=== PATIENT | male | born 1955 | race Caucasian/White ===

== ENCOUNTER 2020-09-27 17:50 | Inpatient (IN) | payer MEDICARE ==
[~2020-09-27] VITALS: Ht 165.1 cm; Wt 94.0 kg
[2020-09-27 18:29] VITALS: BP 108/41
--- NOTE | 2020-09-27 19:00 | NUR ---
ASSUMED CARE OF PT AT THIS TIME. REPORT RECEIVED FROM EDUAR DIEHL.
[2020-09-27 19:14] LABS: BASOPHILS 0.2 % (0-2); EOSINOPHILS 1.8 % (0-7); HEMATOCRIT 21.7 % (42.0-54.0); IMMATURE GRANULOCYTES 0.7 % (0-5); LYMPHOCYTES 19.7 % (15-50); MCHC 24.4 g/dL (31.0-37.0); MCV 73.6 fL (80.0-100.0); MEAN PLATELET VOLUME 9.2 fL (7.4-10.4); MONOCYTES 10.6 % (2-11); NEUTROPHIL ABS# 3.75 10x3/uL (1.78-5.38); PLATELET COUNT 353 10x3/uL (130-400); RBC 2.95 10x6/uL (4.20-6.10); RDW 18.7 % (11.5-14.5); WBC 5.6 10x3/uL (4.8-10.8)
[2020-09-27 19:17] LABS: APTT 28.9 SECONDS (22.8-39.4); INR 1.26 (0.85-1.17); PROTIME 14.6 SECONDS (11.6-15.0)
[2020-09-27 19:26] LABS: HEMOGLOBIN 5.3 g/dL (13.5-17.5)
[2020-09-27 19:30] VITALS: BP 112/49
--- NOTE | 2020-09-27 19:35 | NUR ---
BLOOD CONSENTS OBTAINED AT THIS TIME. PT GIVEN BED BATH, LINEN CHANGED AT THIS TIME. NOTED PRESUMED BED BUGS SCATTERED ACROSS LINEN, ON BED SIDE TABLE WHERE JACKET WAS LAYING, CRAWLING ACROSS PT SKIN. PT BELONGINGS DOUBLE BAGED.
[2020-09-27 19:39] LABS: CALC OSMOLALITY 293 mosm/kg (275-300); CALCIUM 9.2 mg/dL (8.5-10.1); CARBON DIOXIDE 19.5 mmol/L (21.0-32.0); CHLORIDE - SERUM 108 mmol/L (98-107); CREATININE - SERUM 3.2 mg/dL (0.6-1.3); GLUCOSE 120 mg/dL (74-106); POTASSIUM - SERUM 4.5 mmol/L (3.5-5.1); SODIUM 142 mmol/L (136-145); UREA NITROGEN 40 mg/dL (7-18); eGFR NON AFRICAN AMERICAN 21 mL/min (90-120)
[2020-09-27 19:56] LABS: ALBUMIN 3.3 g/dL (3.4-5.0); ALKALINE PHOSPHATASE 91 U/L (30-120); ALT (SGPT) 11 U/L (10-68); BILIRUBIN - TOTAL 0.42 mg/dL (0.2-1.3); CKMB 0.5 U/L (0.0-3.6); CREATINE KINASE 49 UL (21-232); MAGNESIUM - SERUM 2.8 mg/dL (1.8-2.4); PROTEIN - SERUM 7.4 g/dL (6.4-8.2); THYROID STIMULATING HORMONE 2.71 uIU/mL (0.36-3.74); TROPONIN-I < 0.017 ng/mL (0.000-0.060)
[2020-09-27 20:30] VITALS: BP 106/53
[2020-09-27 20:53] LABS: % SATURATION 3 % (15-55); IRON 18 ug/dl (35-150); TOTAL IRON BIND CAPACITY 452 ug/dl (260-445); UNSAT IRON BIND CAPACITY 434 ug/dl (150-375)
--- NOTE | 2020-09-27 20:59 | NUR ---
PROVIDED ICE CHIPS PER EDP VERBAL ORDER. PT TOLERATED WELL. INITIATED BLOOD TRANSFUSION AT THIS TIME.
[2020-09-27] MEDS ORDERED: LOSARTAN-HCTZ1 EAC1 PO ×2 (22:02→22:03)
[2020-09-27] MEDS ORDERED: PRAVACHOL40 MG PO (22:03)
[2020-09-27] MEDS ORDERED: TOPROL XL25 MG PO (22:03)
[2020-09-27] MEDS ORDERED: GLUCOPHAGE XR750 MG PO (22:04)
[2020-09-27] MEDS ORDERED: BUPROPION HCL150 M1 PO (22:04)
[2020-09-27 23:00] VITALS: BP 127/53
[2020-09-28] VITALS (21 sets, daily range): BP systolic 91–152; BP diastolic 39–108; Ht 165.1 cm; Wt 94.0 kg
[2020-09-28 09:26] LABS: BASOPHILS 0 % (0-2); EOSINOPHILS 2.6 % (0-7); IMMATURE GRANULOCYTES 0.6 % (0-5); LYMPHOCYTE ABS# 1.03 10x3/uL (1.32-3.57); LYMPHOCYTES 29.8 % (15-50); MCH 22.3 pg (26.0-34.0); MCHC 28.5 g/dL (31.0-37.0); MEAN PLATELET VOLUME 9.4 fL (7.4-10.4); MONOCYTES 12.7 % (2-11); NEUTROPHIL ABS# 1.88 10x3/uL (1.78-5.38); NEUTROPHILS 54.3 % (40-80); RDW 19.7 % (11.5-14.5)
[2020-09-28 09:36] LABS: HEMATOCRIT 30.2 % (42.0-54.0); HEMOGLOBIN 8.6 g/dL (13.5-17.5); MCV 78.4 fL (80.0-100.0); PLATELET COUNT 237 10x3/uL (130-400); RBC 3.85 10x6/uL (4.20-6.10); WBC 3.5 10x3/uL (4.8-10.8)
[2020-09-28 09:45] LABS: APTT 27.2 SECONDS (22.8-39.4); INR 1.22 (0.85-1.17); PROTIME 14.2 SECONDS (11.6-15.0)
[2020-09-28 09:51] LABS: ALBUMIN 2.9 g/dL (3.4-5.0); ANION GAP 11.5 mmol/L (8-16); BILIRUBIN - TOTAL 0.65 mg/dL (0.2-1.3); CALCIUM 8.4 mg/dL (8.5-10.1); CARBON DIOXIDE 23.2 mmol/L (21.0-32.0); MAGNESIUM - SERUM 2.4 mg/dL (1.8-2.4); PROTEIN - SERUM 6.6 g/dL (6.4-8.2)
[2020-09-28 09:52] LABS: CREATININE - SERUM 2.3 mg/dL (0.6-1.3); POTASSIUM - SERUM 3.7 mmol/L (3.5-5.1)
[2020-09-28 13:13] LABS: UDS - AMPHET NEGATIVE QUAL (NEGATIVE); UDS - BARB NEGATIVE QUAL (NEGATIVE); UDS - BENZO NEGATIVE QUAL (NEGATIVE); UDS - COCAINE NEGATIVE QUAL (NEGATIVE); UDS - OPIATE NEGATIVE QUAL (NEGATIVE); UDS - PCP NEGATIVE QUAL (NEGATIVE); UDS - THC NEGATIVE QUAL (NEGATIVE)
[2020-09-28 13:21] LABS: LDL-HDL RATIO 1.4 ratio (1.5-3.5); MAGNESIUM - SERUM 2.4 mg/dL (1.8-2.4); PHOSPHOROUS 3.7 mg/dL (2.5-4.9)
[2020-09-28 13:35] LABS: COMPLEMENT C4 34.1 mg/dL (17.4-52.2)
[2020-09-28 13:58] LABS: BILIRUBIN NEGATIVE (NEGATIVE); KETONE NEGATIVE (NEGATIVE); NITRITE NEGATIVE (NEGATIVE); UROBILINOGEN NORMAL mg/dL (< 2)
--- NOTE | 2020-09-28 16:46 | MORECARE ---
CASE MANAGEMENT DISCHARGE SUMMARY PATIENT: SHELIA HERNANDEZ UNIT: [id number] ADM DATE: 09/27/20 AGE: 65 : 53 SEX: M ROOM/BED: D.2309 AUTHOR: KARRI BRANCH PHYSICIAN: REFERRING PHYSICIAN: MOON AYALA MD DATE OF SERVICE: 09/28/20 Discharge Plan Patient Name: SHELIA HERNANDEZ Facility: [facility]:[place] : 1955 Planned Disposition: Home Anticipated Discharge Date: Discharge Date: Expected LOS: Initial Reviewer: [id number] Initial Review Date: 09/27/2020 Generated: 09/28/20 5:45 pm Comments DCP- Discharge Planning Updated by [email or web address]: Ester Byrne on 09/28/20 3:[address] Patient plans to DC home and feels this is a safe discharge plan. Patient uses Dr. Luann Sosa as his PCP and [facility] pharmacy #[id number]. Patient is unsure of Arlin Hernandez phone number or contact information. DCPIA - Discharge Planning Initial Assessment Updated by [email or web address]: Ester Byrne on 09/28/20 4:42 pm * Is the patient Alert and Oriented? Yes * How many steps to enter\exit or inside your home? none * PCP Dr. Luann Sosa - [facility] * Pharmacy [facility] pharmacy #[id number] * Preadmission Environment Home Alone * ADLs Independent * Other Equipment none * List name and contact numbers for known caregivers / representatives who currently or will assist patient after discharge: Arlin Chacon, number unknown * Verbal permission to speak to the caregivers and representatives has been obtained from the patient. Yes * Can the patient safely return to the preadmission environment? Yes * Has this patient been hospitalized within the prior 30 days at any hospital? No Patient Name: SHELIA HERNANDEZ Page [id number] at 1646 All edits/amendments must be made on the electronic document DICTATION DATE: 09/28/201644 URBAN DESIGNER: LIZZIE 09/28/20 164 RPT#: [id number] DC DATE: STATUS: ADM IN [facility] [address] [place] [address] END OF REPORT
--- NOTE | 2020-09-28 18:55 | NUR ---
Recieved report. Pt lying in bed watching television. PIV Right hand patent. No distress noted. Will continue to monitor.
[2020-09-29] VITALS (23 sets, daily range): BP systolic 114–146; BP diastolic 48–105
[2020-09-29 03:08] LABS: BASOPHILS 0 % (0-2); EOSINOPHILS 2.7 % (0-7); HEMOGLOBIN 8.2 g/dL (13.5-17.5); IMMATURE GRANULOCYTES 0.8 % (0-5); LYMPHOCYTE ABS# 1.04 10x3/uL (1.32-3.57); LYMPHOCYTES 28.1 % (15-50); MCH 22.3 pg (26.0-34.0); MCHC 28.3 g/dL (31.0-37.0); MCV 78.8 fL (80.0-100.0); MEAN PLATELET VOLUME 9.8 fL (7.4-10.4); MONOCYTES 15.9 % (2-11); NEUTROPHIL ABS# 1.94 10x3/uL (1.78-5.38); NEUTROPHILS 52.5 % (40-80); PLATELET COUNT 234 10x3/uL (130-400); RBC 3.68 10x6/uL (4.20-6.10); RDW 19.8 % (11.5-14.5); WBC 3.7 10x3/uL (4.8-10.8)
[2020-09-29 03:24] LABS: ALBUMIN 2.6 g/dL (3.4-5.0); BILIRUBIN - TOTAL 0.45 mg/dL (0.2-1.3); CALCIUM 7.8 mg/dL (8.5-10.1); CARBON DIOXIDE 22.3 mmol/L (21.0-32.0); MAGNESIUM - SERUM 2.6 mg/dL (1.8-2.4); PROTEIN - SERUM 5.7 g/dL (6.4-8.2)
[2020-09-29 03:29] LABS: CREATININE - SERUM 1.6 mg/dL (0.6-1.3); POTASSIUM - SERUM 4.3 mmol/L (3.5-5.1)
[2020-09-29 12:09] LABS: ANA REFLEX - DBL STRANDED DNA 2 IU/mL (0-9)
[2020-09-29 15:10] LABS: ANA REFLEX - ANTICHROMATIN ABS <0.2 AI (0.0-0.9); ANA REFLEX - CENTROMERE B ABS <0.2 AI (0.0-0.9); ANA REFLEX - DIRECT Positive (Negative); ANA REFLEX - JO-1 AB <0.2 AI (0.0-0.9); ANA REFLEX - RNP ANTIBODIES >8.0 AI (0.0-0.9); ANA REFLEX - SCL-70 <0.2 AI (0.0-0.9); ANA REFLEX - SJOGRENS AB SSA <0.2 AI (0.0-0.9); ANA REFLEX - SJOGRENS AB SSB <0.2 AI (0.0-0.9); ANA REFLEX - SMITH AB <0.2 AI (0.0-0.9)
[2020-09-30] VITALS (13 sets, daily range): BP systolic 117–151; BP diastolic 52–123
[2020-09-30 04:25] LABS: BASOPHILS 0.2 % (0-2); EOSINOPHILS 3.1 % (0-7); HEMATOCRIT 32.6 % (42.0-54.0); IMMATURE GRANULOCYTES 0.7 % (0-5); LYMPHOCYTE ABS# 1.02 10x3/uL (1.32-3.57); LYMPHOCYTES 22.3 % (15-50); MCH 22.1 pg (26.0-34.0); MCHC 27.6 g/dL (31.0-37.0); MCV 79.9 fL (80.0-100.0); MEAN PLATELET VOLUME 9.7 fL (7.4-10.4); MONOCYTES 14.4 % (2-11); NEUTROPHIL ABS# 2.71 10x3/uL (1.78-5.38); NEUTROPHILS 59.3 % (40-80); PLATELET COUNT 253 10x3/uL (130-400); RBC 4.08 10x6/uL (4.20-6.10); RDW 20.4 % (11.5-14.5); WBC 4.6 10x3/uL (4.8-10.8)
[2020-09-30 04:52] LABS: ALBUMIN 2.6 g/dL (3.4-5.0); BILIRUBIN - TOTAL 0.28 mg/dL (0.2-1.3); CALCIUM 7.8 mg/dL (8.5-10.1); CARBON DIOXIDE 23.9 mmol/L (21.0-32.0); CREATININE - SERUM 1.3 mg/dL (0.6-1.3); MAGNESIUM - SERUM 2.3 mg/dL (1.8-2.4); PROTEIN - SERUM 6.4 g/dL (6.4-8.2)
[2020-09-30 04:54] LABS: ANION GAP 12.6 mmol/L (8-16); POTASSIUM - SERUM 3.5 mmol/L (3.5-5.1)
--- NOTE | 2020-09-30 10:43 | NUR ---
BATH AND LINEN CHANGE. PT UP TO CHAIR WITH ASST.
--- NOTE | 2020-09-30 18:41 | NUR ---
RECEIVED PT TO THE FLOOR. AAOX4, SITUATED COMFORTABLY IN BED. DENIES ANY NEEDS AT THIS TIME. BED IN LOWEST POSITION, BED RAILS X2, CALL LIGHT WITHIN [facility]. WILL CONTINUE POC.
--- NOTE | 2020-09-30 19:00 | NUR ---
BEDSIDE REPORT RECEIVED AND CARE OF PT ASSUMED. PT JUST ARRIVED FROM ICU. ORIENTED TO ROOM AND CALL LIGHT.
--- NOTE | 2020-09-30 21:18 | NUR ---
HS MEDICATIONS GIVEN. RE-STARTED IV FLUIDS PER ORDER.
[2020-10-01 01:17] VITALS: BP 127/67
[2020-10-01 06:36] VITALS: BP 151/67
--- NOTE | 2020-10-01 06:37 | NUR ---
FSBS 102 THIS CHECK REQUIRING NO COVERAGE. PT C/O "STARVING"...GAVE HIM A SANDWICH TRAY AND MILK, SINCE IT IS A WHILE BEFORE BREAKFAST. WILL CONTINUE TO MONITOR FOR NEEDS.
--- NOTE | 2020-10-01 07:15 | NUR ---
REC'D IN BED WITH EYES CLOSED EASILY AROUSED WHEN NAME IS CALLED. RESP EVEN AND UNLABORED WITH NO DISTRESS NOTED. CAN EXPRESS NEEDS AND WANTS. NO C/O NOTED OR VOICED. ASSESSMENT COMPLETED. C/L IN REACH AT BEDSIDE.
[2020-10-01 07:47] LABS: BASOPHILS 0 % (0-2); EOSINOPHILS 2.8 % (0-7); HEMATOCRIT 34.3 % (42.0-54.0); HEMOGLOBIN 9.2 g/dL (13.5-17.5); IMMATURE GRANULOCYTES 0.7 % (0-5); LYMPHOCYTE ABS# 0.88 10x3/uL (1.32-3.57); LYMPHOCYTES 15.4 % (15-50); MCHC 26.8 g/dL (31.0-37.0); MEAN PLATELET VOLUME 9.8 fL (7.4-10.4); MONOCYTES 14.5 % (2-11); NEUTROPHIL ABS# 3.82 10x3/uL (1.78-5.38); NEUTROPHILS 66.6 % (40-80); PLATELET COUNT 237 10x3/uL (130-400); RBC 4.18 10x6/uL (4.20-6.10); RDW 21.3 % (11.5-14.5); WBC 5.7 10x3/uL (4.8-10.8)
[2020-10-01 07:55] LABS: MCV 82.1 fL (80.0-100.0)
[2020-10-01 08:16] LABS: ALBUMIN 2.8 g/dL (3.4-5.0); ANION GAP 14.6 mmol/L (8-16); BILIRUBIN - TOTAL 0.53 mg/dL (0.2-1.3); CALCIUM 8.4 mg/dL (8.5-10.1); CREATININE - SERUM 1.2 mg/dL (0.6-1.3); POTASSIUM - SERUM 3.6 mmol/L (3.5-5.1); PROTEIN - SERUM 6.8 g/dL (6.4-8.2)
[2020-10-01 08:49] VITALS: BP 143/71
[2020-10-01 12:05] VITALS: BP 146/70
--- NOTE | 2020-10-01 12:50 | NUR ---
RETURN CALL TO BROTHER LYNDSEY AT THIS TIME AND GAVE UPDATE ON PT PROGRESSION.
--- NOTE | 2020-10-01 13:36 | NUR ---
Nutrition Reassessment/Follow-up: From ICU. Eating well. Reports eating 2 breakfast trays this AM. Ongoing diarrhea. GI following. Diet: Renal ADA PO intake: 80-100% Wt: 198# (09/30) Labs noted: Glu 120, Ca 8.4, Alb 2.8 Meds noted: Protonix, Florajen, Humulin, NS @ 50, banana bag @ 125, electrolyte protocol Est needs: 1374-2099 kcal/day (25-30 kcal/kg Adj BW of 68.8 kg) 70-85 g protein/day (1-1.2 g/kg Adj BW of 68.8 kg) 8490-5084 mL H2O/day (1 mL/kcal) -RD will follow up by 10/08 if pt still admitted.
[2020-10-01 17:08] LABS: SPE - A/G RATIO 0.9 (0.7-1.7); SPE - ALBUMIN 2.9 g/dL (2.9-4.4); SPE - ALPHA-1 GLOBULIN 0.2 g/dL (0.0-0.4); SPE - ALPHA-2 GLOBULIN 0.7 g/dL (0.4-1.0); SPE - BETA GLOBULIN 1.1 g/dL (0.7-1.3); SPE - GAMMA GLOBULIN 1.2 g/dL (0.4-1.8); SPE - M-SPIKE Not Observed g/dL (Not Observed); SPE - TOTAL PROTEIN 6.1 g/dL (6.0-8.5)
[2020-10-01 17:08] LABS: UPE RAND - ALPHA 1 GLOBULIN 3.4 % (()); UPE RAND - ALPHA 2 GLOBULIN 13.3 % (()); UPE RAND - BETA GLOBULIN 23.3 % (())
--- NOTE | 2020-10-01 17:10 | NUR ---
OT NOTE: PT COMPLETED BED MOB WITH CGA. PT COMPLETED BUE AROM EXS AT EOB WITH SPV. PT COMPLETED SELF FEEDING WITH SETUP AT EOB. PT COMPLETED FACE HYGIENE WITH SETUP. [phone] THANK YOU,MAGDALENE LOYD
[2020-10-01 18:05] VITALS: BP 164/67
--- NOTE | 2020-10-01 19:00 | NUR ---
REPORT GIVEN BY EDUAR SHIPLEY
--- NOTE | 2020-10-01 20:30 | NUR ---
PT IS LAYING IN BED WATCHING TV. HE HAS NO C/O. HE IS ON ISOLATION FOR C DIFF. HE HAS DM, HTN, AND CA PNEUMONIA. HE IS NOT ON O2. HE IS A BIT WEAK BUT HE GETS UP AND GOES TO THE BR ALONE. I TOOK IN THINGS TO GET A STOOL SPECIMEN THAT WAS ORDERED. PT IS AWARE THAT HE NEEDS TO PROVIDE A SAMPLE. HE HAS AN IV IN THE RIGHT FOREARM. THERE IS NO REDNESS OR SWELLING AT THE SITE. HE HAS NO C/O OR NEEDS AT THIS TIME.
[2020-10-01 20:48] VITALS: BP 152/76
--- NOTE | 2020-10-01 21:45 | NUR ---
BS IS 115. NO C/O PT WATCHING TV.
--- NOTE | 2020-10-01 23:45 | NUR ---
STOOL SAMPLE COLLECTED AND TAKEN TO THE LAB. THE STOOL WAS N0T LIQUID BUT SEMI FORMED.
--- NOTE | 2020-10-02 02:00 | NUR ---
IN PT ROOM TO [facility] ANTIBIOTICS. PT IS ASLEEP AND DID NOT WAKE UP WHILE I WAS IN THE ROOM.
[2020-10-02 04:00] VITALS: BP 139/59
--- NOTE | 2020-10-02 04:25 | NUR ---
IN PT ROOM TO [facility] IV FLU[facility]. HE BARELY WOKE UP WHEN I WAS IN THE ROOM. HE HAS NO C/O OR NEEDS AT THIS TIME.
[2020-10-02 05:57] LABS: BASOPHILS 0 % (0-2); HEMATOCRIT 31.6 % (42.0-54.0); HEMOGLOBIN 8.6 g/dL (13.5-17.5); IMMATURE GRANULOCYTES 0.8 % (0-5); LYMPHOCYTE ABS# 0.86 10x3/uL (1.32-3.57); LYMPHOCYTES 17.6 % (15-50); MCH 22.1 pg (26.0-34.0); MCHC 27.2 g/dL (31.0-37.0); MEAN PLATELET VOLUME 9.9 fL (7.4-10.4); MONOCYTES 12.1 % (2-11); NEUTROPHIL ABS# 3.29 10x3/uL (1.78-5.38); NEUTROPHILS 67.5 % (40-80); PLATELET COUNT 221 10x3/uL (130-400); RDW 21.6 % (11.5-14.5); WBC 4.9 10x3/uL (4.8-10.8)
--- NOTE | 2020-10-02 06:30 | NUR ---
PT SLEPT MOST OF THE SHIFT. NO NEW C/O OR NEEDS
[2020-10-02 07:02] LABS: ALBUMIN 2.6 g/dL (3.4-5.0); ANION GAP 14.4 mmol/L (8-16); BILIRUBIN - TOTAL 0.38 mg/dL (0.2-1.3); CARBON DIOXIDE 21.4 mmol/L (21.0-32.0); CREATININE - SERUM 1.1 mg/dL (0.6-1.3); MAGNESIUM - SERUM 2.1 mg/dL (1.8-2.4); POTASSIUM - SERUM 3.8 mmol/L (3.5-5.1)
--- NOTE | 2020-10-02 07:30 | NUR ---
REC'D IN BED AWAKE WATCHING TV. RESP EVEN AND UNLABORED WITH NO DISTRESS NOTED. CAN EXPRESS SOME NEEDS AND WANTS. NO C/O NOTED OR VOICED. ASSESSMENT COMPLETED. C/L IN REACH AT BEDSIDE.
[2020-10-02 08:43] VITALS: BP 145/70
--- NOTE | 2020-10-02 12:44 | NUR ---
I AGREE WITH THE ASSESSMENT COMPLETED BY THE LOG CLERK
[2020-10-02 13:13] VITALS: BP 137/73
--- NOTE | 2020-10-02 16:12 | NUR ---
OT NOTE: PT EXHIBITED DECREASED SAFETY AWARENESS. PT EXHIBITED WHEEZING DURING ACTIVITIES. NURSING NOTIFIED. PT O2 SATS STABLE. PT REQUIRED MOD A FOR SUPINE TO SIT AT EOB. PT COMPLETED STANDING WITH MIN A. PT REQUIRED MIN A FOR UB BATHING TASKS AT EOB. PT REQUIRED MAX A FOR LB BATHING TASKS SECONDARY TO BM. PT COMPLETED HAIR SHAMPOO WITH MOD A. [phone] THANK YOU,MAGDALENE LOYD
--- NOTE | 2020-10-02 16:51 | NUR ---
OT NOTE: PT GETTING UP OUT OF BED..RAN INTO PTS ROOM TO ASSIST. PT GETTING TANGLED UP IN IV LINE.. MIN ASSIST WITH AMB TO TOILET. MOD ASSIST WITH THOROUGH TOILET HYGIENE. MIN ASSIST AND MOD VC FOR SAFETY WITH RETURN TO BED. SET UP WITH SIMPLE GROOMING TASKS WHILE SITTING UP ON EOB. MARY CASTILLO, OTR/L [phone]
[2020-10-02 17:54] VITALS: BP 163/74
[2020-10-02 20:00] VITALS: BP 153/63
[2020-10-03] VITALS: BP 141/53
--- NOTE | 2020-10-03 03:38 | NUR ---
I have reviewed this patient and I concur with the Shift Assessment completed by the Licensed Practical Nurse today this shift.
[2020-10-03 04:00] VITALS: BP 114/69
[2020-10-03 05:31] LABS: ALBUMIN 2.7 g/dL (3.4-5.0); ALKALINE PHOSPHATASE 71 U/L (30-120); ALT (SGPT) 13 U/L (10-68); BILIRUBIN - TOTAL 0.38 mg/dL (0.2-1.3); CALC OSMOLALITY 280 mosm/kg (275-300); CALCIUM 8.1 mg/dL (8.5-10.1); CARBON DIOXIDE 21.9 mmol/L (21.0-32.0); CHLORIDE - SERUM 110 mmol/L (98-107); GLUCOSE 140 mg/dL (74-106); MAGNESIUM - SERUM 2.2 mg/dL (1.8-2.4); POTASSIUM - SERUM 3.8 mmol/L (3.5-5.1); PROTEIN - SERUM 6.6 g/dL (6.4-8.2); SODIUM 141 mmol/L (136-145); UREA NITROGEN 8 mg/dL (7-18); eGFR NON AFRICAN AMERICAN 79 mL/min (90-120)
[2020-10-03 08:40] LABS: HEMATOCRIT 28.2 % (42.0-54.0); LYMPHOCYTE ABS# 0.88 10x3/uL (1.32-3.57); MCH 22.7 pg (26.0-34.0); MCHC 28.4 g/dL (31.0-37.0); MCV 79.9 fL (80.0-100.0); MEAN PLATELET VOLUME 9.7 fL (7.4-10.4); NEUTROPHIL ABS# 2.88 10x3/uL (1.78-5.38); PLATELET COUNT 181 10x3/uL (130-400); RBC 3.53 10x6/uL (4.20-6.10); RDW 21.8 % (11.5-14.5); WBC 4.4 10x3/uL (4.8-10.8)
[2020-10-03 09:26] VITALS: BP 156/69
[2020-10-03 12:45] LABS: EOSINOPHILS 3 % (0-7); LYMPHOCYTES 24 % (15-50); MONOCYTES 15 % (2-11); NEUTROPHILS 58 % (40-80); PLATELET ESTIMATE NORMAL
--- NOTE | 2020-10-03 13:05 | MORECARE ---
CASE MANAGEMENT DISCHARGE SUMMARY PATIENT: SHELIA HERNANDEZ UNIT: [id number] ADM DATE: 09/27/20 AGE: 65 : 53 SEX: M ROOM/BED: D.2207 AUTHOR: SARINADOC PHYSICIAN: REFERRING PHYSICIAN: MOON AYALA MD DATE OF SERVICE: 10/03/20 Discharge Plan Patient Name: SHELIA HERNANDEZ Facility: [facility]:[place] : 1955 Planned Disposition: Home Anticipated Discharge Date: Discharge Date: Expected LOS: Initial Reviewer: [email or web address] Initial Review Date: 09/27/2020 Generated: 10/03/20 2:04 pm Comments DCP- Discharge Planning Updated by [id number]: Lety Cash on 10/03/20 12:[address] [facility] TAKES HIS INSURANCE SO I HAVE SENT THE REFERRAL TO THEM THEY WILL CALL ME BACK IF THEY HAVE ANY ISSUES IMMSERVED AND GARCIA ALSO OBTAINED DCP- Discharge Planning Updated by [email or web address]: Lety Cash on 10/03/20 11:[address] MET WITH PATIENT ABOUT DC PLANS AND REHAB, HE DOES NOT WANT TO GO TO REHAB BUT HE IS AGREEABLE TO HOME HEALTH. GARCIA SIGNED FOR WHOEVER TAKES HIS INSURANCE HE APPEARED SOB IN THE ROOM TALKING WITH ME I HAVE ORDERED A WALK TEST TO SEE IF HE MIGHT NEED HOME O2 DCP- Discharge Planning Updated by [id number]: Ester Byrne on 09/28/20 3:[address] Patient plans to DC home and feels this is a safe discharge plan. Patient uses Dr. Luann Sosa as his PCP and [facility] pharmacy #[id number]. Patient is unsure of Arlin Hernandez phone number or contact information. DCPIA - Discharge Planning Initial Assessment Updated by [email or web address]: Ester Byrne on 09/28/20 4:42 pm * Is the patient Alert and Oriented? Yes * How many steps to enter\exit or inside your home? none * PCP Dr. Luann Sosa - [facility] * Pharmacy [facility] pharmacy #[id number] * Preadmission Environment Home Alone * ADLs Independent * Other Equipment none * List name and contact numbers for known caregivers / representatives who currently or will assist patient after discharge: Arlin Chacon, number unknown * Verbal permission to speak to the caregivers and representatives has been obtained from the patient. Yes * Can the patient safely return to the preadmission environment? Yes * Has this patient been hospitalized within the prior 30 days at any hospital? No External Providers External Provider: [facility] Next Contact Date: Service Request Date: Service Type: Resolution: Reviewer: Comments: Coverage Notice Reviewer: [email or web address] Alexi Cash Notice Issued Date-Time: 10/03/2020 12:15 Notice Type: IM Discharge Notice Notice Delivered To: Patient Relationship to Patient: Layup Worker Name: Delivery Method: HAND - Hand Delivered Zunilda Days: Prior Verbal Notification: Recipient Understood Notice: Yes Recipient Signature: Yes Med Rec Note Co-signed by Attending: Coverage Notice Comment: IMM SERVED AND EXPLAINED Reviewer: [email or web address] Alexi Cash Notice Issued Date-Time: 10/03/2020 12:15 Notice Type: Patient Choice Letter Notice Delivered To: Patient Relationship to Patient: Layup Worker Name: Delivery Method: HAND - Hand Delivered Zunilda Days: Prior Verbal Notification: Recipient Understood Notice: Yes Recipient Signature: Yes Med Rec Note Co-signed by Attending: Coverage Notice Comment: GARCIA FOR HOME HEALTH HE DIDN'T CARE Last DP export: 09/28/20 3:46 p Patient Name: SHELIA HERNANDEZ Page [phone] at 1305 All edits/amendments must be made on the electronic document DICTATION DATE: 10/03/20 1305 HOME LIGHTING ADVISER: LIZZIE 10/03/20 1305 RPT#: [id number] DC DATE: STATUS: ADM IN [facility] [address] [place] [address] END OF REPORT
[2020-10-03 13:58] VITALS: BP 138/64
--- NOTE | 2020-10-03 16:10 | NUR ---
OT NOTE: PT EXHIBITED POOR SAFETY AWARENESS. PT COMPLETED SUPINE TO SIT WITH CGA. PT COMPLETED SIT TO STAND WITH CGA. PT COMPLETED BED TO TOILET ADL MOB WITH CGA. PT COMPLETED TOILET HYGIENE WITH MAX A FOR EFFECTIVE CLEANING. PT REQUIRED TACTILE CUES FOR INCREASED SAFETY SECONDARY TO IMPULSIVE TRAITS. [phone] THANK YOU,MAGDALENE LOYD
--- NOTE | 2020-10-03 17:09 | NUR ---
OT NOTE: PT PERFORMING BED MOB INCLUDING SUPINE TO SIT WITHOUT ASSIST; REQUIRES ASSSIST FOR AMB IN ROOM SECONDARY TO SAFETY. PT WAS NOTED AMB THROUGHOUT HALLWAY WITH PHYS THERAPY WITH USE OF WALKER AND DOING WELL. PT REQUIRES SBA FOR AMB TO AND FROM TOILET, HOWEVER, REQUIRES INCREASED ASSIST WITH HYGIENE. PT PERFORMING FEEDING WHILE SITTING UP ON EOB WITHOUT ASSIST. MARY CASTILLO, OTR/L [id number]
[2020-10-03 18:05] VITALS: BP 127/78
[2020-10-03 20:00] VITALS: BP 163/73
[2020-10-04] VITALS: BP 141/81
[2020-10-04 04:00] VITALS: BP 177/86
[2020-10-04 07:39] LABS: BASOPHILS 0.2 % (0-2); EOSINOPHILS 2.5 % (0-7); HEMATOCRIT 28.9 % (42.0-54.0); IMMATURE GRANULOCYTES 0.8 % (0-5); LYMPHOCYTE ABS# 0.46 10x3/uL (1.32-3.57); LYMPHOCYTES 9.7 % (15-50); MCH 22.2 pg (26.0-34.0); MCHC 27.7 g/dL (31.0-37.0); MCV 80.3 fL (80.0-100.0); MONOCYTES 12.2 % (2-11); NEUTROPHIL ABS# 3.55 10x3/uL (1.78-5.38); NEUTROPHILS 74.6 % (40-80); PLATELET COUNT 206 10x3/uL (130-400); RDW 22.2 % (11.5-14.5); WBC 4.8 10x3/uL (4.8-10.8)
[2020-10-04 07:41] LABS: ALBUMIN 2.4 g/dL (3.4-5.0); ANION GAP 13.8 mmol/L (8-16); BILIRUBIN - TOTAL 0.46 mg/dL (0.2-1.3); CALCIUM 8.2 mg/dL (8.5-10.1); CARBON DIOXIDE 19.8 mmol/L (21.0-32.0); CREATININE - SERUM 1.6 mg/dL (0.6-1.3); POTASSIUM - SERUM 3.6 mmol/L (3.5-5.1)
[2020-10-04 08:42] VITALS: BP 159/67
[2020-10-04 11:52] VITALS: BP 152/68
--- NOTE | 2020-10-04 14:24 | MORECARE ---
CASE MANAGEMENT DISCHARGE SUMMARY PATIENT: SHELIA HERNANDEZ UNIT: [id number] ADM DATE: 09/27/20 AGE: 65 : 53 SEX: M ROOM/BED: D.2207 AUTHOR: SARINA,DOC PHYSICIAN: REFERRING PHYSICIAN: MOON AYALA MD DATE OF SERVICE: 10/04/20 Discharge Plan Patient Name: SHELIA HERNANDEZ Facility: [facility]:[place] : 1955 Planned Disposition: Home Anticipated Discharge Date: Discharge Date: Expected LOS: Initial Reviewer: [id number] Initial Review Date: 09/27/2020 Generated: 10/04/20 3:23 pm Comments DCP- Discharge Planning Updated by [email or web address]: Lety Cash on 10/04/20 1:[address] SENT WALK TEST AND CLINICAL TO [facility] FOR O2 NEEDS DCP- Discharge Planning Updated by [id number]: Lety Cash on 10/03/20 12:[address] [facility] TAKES HIS INSURANCE SO I HAVE SENT THE REFERRAL TO THEM THEY WILL CALL ME BACK IF THEY HAVE ANY ISSUES IMMSERVED AND [facility] ALSO OBTAINED DCP- Discharge Planning Updated by [email or web address]: Lety Cash on 10/03/20 11:[address] MET WITH PATIENT ABOUT DC PLANS AND REHAB, HE DOES NOT WANT TO GO TO REHAB BUT HE IS AGREEABLE TO HOME HEALTH. GARCIA SIGNED FOR WHOEVER TAKES HIS INSURANCE HE APPEARED SOB IN THE ROOM TALKING WITH ME I HAVE ORDERED A WALK TEST TO SEE IF HE MIGHT NEED HOME O2 DCP- Discharge Planning Updated by [email or web address]: Ester Byrne on 09/28/20 3:[address] Patient plans to DC home and feels this is a safe discharge plan. Patient uses Dr. Luann Sosa as his PCP and [facility] pharmacy #[id number]. Patient is unsure of Arlin Hernandez phone number or contact information. DCPIA - Discharge Planning Initial Assessment Updated by [email or web address]: Ester Byrne on 09/28/20 4:42 pm * Is the patient Alert and Oriented? Yes * How many steps to enter\exit or inside your home? none * PCP Dr. Luann Sosa - [facility] * Pharmacy [facility] pharmacy #[id number] * Preadmission Environment Home Alone * ADLs Independent * Other Equipment none * List name and contact numbers for known caregivers / representatives who currently or will assist patient after discharge: Arlin Chacon, number unknown * Verbal permission to speak to the caregivers and representatives has been obtained from the patient. Yes * Can the patient safely return to the preadmission environment? Yes * Has this patient been hospitalized within the prior 30 days at any hospital? No External Providers External Provider: OTHER-OTHER Next Contact Date: Service Request Date: Service Type: Resolution: Reviewer: Comments: Coverage Notice Reviewer: [id number] Cash Notice Issued Date-Time: 10/03/2020 12:15 Notice Type: IM Discharge Notice Notice Delivered To: Patient Relationship to Patient: Die Baker Name: Delivery Method: HAND - Hand Delivered Zunilda Days: Prior Verbal Notification: Recipient Understood Notice: Yes Recipient Signature: Yes Med Rec Note Co-signed by Attending: Coverage Notice Comment: IMM SERVED AND EXPLAINED Reviewer: [id number] Cash Notice Issued Date-Time: 10/03/2020 12:15 Notice Type: Patient Choice Letter Notice Delivered To: Patient Relationship to Patient: Die Baker Name: Delivery Method: HAND - Hand Delivered Zunilda Days: Prior Verbal Notification: Recipient Understood Notice: Yes Recipient Signature: Yes Med Rec Note Co-signed by Attending: Coverage Notice Comment: GARCIA FOR HOME HEALTH HE DIDN'T CARE Last DP export: 10/03/20 12:05 pm Patient Name: SHELIA HERNANDEZ Page 22226 at 1424 All edits/amendments must be made on the electronic document DICTATION DATE: 10/04/20 142 MEDIA COORDINATOR: LIZZIE 10/04/20 142 RPT#: [id number] DC DATE: STATUS: ADM IN [facility] [address] [place] [address] END OF REPORT
--- NOTE | 2020-10-04 15:05 | NUR ---
OT NOTE: PT EXHIBITED DECREASED ADL ABILITY WITH TOILET HYGIENE. PT PRESENTED ON TOILET WITH BM ON LE AND TOILET AREA. PT REQUIRED MAX-TOTAL A WITH LB HYGIENE. PT COMPLETED DOFF OF BRIEF WITH MIN A. PT DONNED BRIEF WITH SETUP. PT COMPLETED ADL MOB WITH CGA. PT CUED TO USE CALL LIGHT FOR ASSIST. CL WITHIN REACH. NO BED ALARM PRESENT. DEL CASTILLO NOTIFIED NURSE. AT NURSING REQUEST DEL CASTILLO PUT BED ALARM PAD. [phone] THANK YOU,MAGDALENE LOYD
[2020-10-04 17:12] VITALS: BP 173/83
[2020-10-04 20:00] VITALS: BP 152/65
[2020-10-05] VITALS: BP 167/101
[2020-10-05 04:00] VITALS: BP 165/71
--- NOTE | 2020-10-05 04:44 | NUR ---
I have reviewed this patient and I concur with the Shift Assessment completed by the Licensed Practical Nurse today this shift.
[2020-10-05 06:48] LABS: ALBUMIN 2.7 g/dL (3.4-5.0); ANION GAP 16.5 mmol/L (8-16); BILIRUBIN - TOTAL 0.35 mg/dL (0.2-1.3); CALCIUM 8.3 mg/dL (8.5-10.1); CARBON DIOXIDE 19.2 mmol/L (21.0-32.0); CREATININE - SERUM 1.6 mg/dL (0.6-1.3); MAGNESIUM - SERUM 2.2 mg/dL (1.8-2.4); PHOSPHOROUS 3.4 mg/dL (2.5-4.9); POTASSIUM - SERUM 3.7 mmol/L (3.5-5.1); PROTEIN - SERUM 6.2 g/dL (6.4-8.2)
[2020-10-05 07:20] LABS: BASOPHILS 0.2 % (0-2); HEMATOCRIT 31.1 % (42.0-54.0); HEMOGLOBIN 8.7 g/dL (13.5-17.5); IMMATURE GRANULOCYTES 0.6 % (0-5); LYMPHOCYTE ABS# 0.89 10x3/uL (1.32-3.57); LYMPHOCYTES 18.2 % (15-50); MCH 22.3 pg (26.0-34.0); MCV 79.7 fL (80.0-100.0); MEAN PLATELET VOLUME 10.5 fL (7.4-10.4); MONOCYTES 9.4 % (2-11); NEUTROPHIL ABS# 3.39 10x3/uL (1.78-5.38); NEUTROPHILS 69.6 % (40-80); PLATELET COUNT 195 10x3/uL (130-400); RDW 22.8 % (11.5-14.5); WBC 4.9 10x3/uL (4.8-10.8)
[2020-10-05 08:26] VITALS: BP 115/69
--- NOTE | 2020-10-05 09:54 | NUR ---
PT SITTING UP ON SIDE OF BED. RESP EVEN AND UNLABORED. DENIES PAIN AT THIS TIME. IV TO RIGHT FOREARM WITH NS @ 50ML/HR INFUSING VIA PUMP. SITE WITHOUT REDNESS OR EDEMA. DENIES NEEDS AT THIS TIME. CL WITHIN REACH. ENCOURAGED TO CALL WITH NEEDS. CONTINUE POC
[2020-10-05 11:22] VITALS: BP 144/79
--- NOTE | 2020-10-05 12:08 | NUR ---
OT NOTE: PT COMPLETED SITTING AND STANDING BALANCE WITH CGA. PT EXHIBITED DECREASED SAFETY AWARENESS. [phone] THANK YOU,MAGDALENE LOYD
--- NOTE | 2020-10-05 13:28 | MORECARE ---
CASE MANAGEMENT DISCHARGE SUMMARY PATIENT: SHELIA HERNANDEZ UNIT: [id number] ADM DATE: 09/27/20 AGE: 65 : 53 SEX: M ROOM/BED: D.2207 AUTHOR: SARINA,DOC PHYSICIAN: REFERRING PHYSICIAN: MOON AYALA MD DATE OF SERVICE: 10/05/20 Discharge Plan Patient Name: SHELIA HERNANDEZ Facility: [facility]:[place] : 1955 Planned Disposition: Home Anticipated Discharge Date: Discharge Date: Expected LOS: Initial Reviewer: [email or web address] Initial Review Date: 09/27/2020 Generated: 10/05/20 2:28 pm Comments DCP- Discharge Planning Updated by [email or web address]: Lety Cash on 10/05/20 12:[address] I have ordered O2, walker and nebulizer from [facility], they should deliver to the hospital when patient is ready to discharge home [facility] will accept the patient if his home bed bug situation has been treated. DCP- Discharge Planning Updated by [email or web address]: Lety Cash on 10/04/20 1:[address] SENT WALK TEST AND CLINICAL TO [facility] FOR O2 NEEDS DCP- Discharge Planning Updated by [id number]: Lety Cash on 10/03/20 12:[address] [facility] TAKES HIS INSURANCE SO I HAVE SENT THE REFERRAL TO THEM THEY WILL CALL ME BACK IF THEY HAVE ANY ISSUES IMMSERVED AND [facility] ALSO OBTAINED DCP- Discharge Planning Updated by [id number]: Lety Cash on 10/03/20 11:[address] MET WITH PATIENT ABOUT DC PLANS AND REHAB, HE DOES NOT WANT TO GO TO REHAB BUT HE IS AGREEABLE TO HOME HEALTH. GARCIA SIGNED FOR WHOEVER TAKES HIS INSURANCE HE APPEARED SOB IN THE ROOM TALKING WITH ME I HAVE ORDERED A WALK TEST TO SEE IF HE MIGHT NEED HOME O2 DCP- Discharge Planning Updated by [email or web address]: Ester Byrne on 09/28/20 3:[address] Patient plans to DC home and feels this is a safe discharge plan. Patient uses Dr. Luann Sosa as his PCP and [facility] pharmacy #[id number]. Patient is unsure of Arlin Hernandez phone number or contact information. DCPIA - Discharge Planning Initial Assessment Updated by [email or web address]: Ester Byrne on 09/28/20 4:42 pm * Is the patient Alert and Oriented? Yes * How many steps to enter\exit or inside your home? none * PCP Dr. Luann Truong [facility] * Pharmacy [facility] pharmacy #[id number] * Preadmission Environment Home Alone * ADLs Independent * Other Equipment none * List name and contact numbers for known caregivers / representatives who currently or will assist patient after discharge: Arlin Chacon, number unknown * Verbal permission to speak to the caregivers and representatives has been obtained from the patient. Yes * Can the patient safely return to the preadmission environment? Yes * Has this patient been hospitalized within the prior 30 days at any hospital? No Coverage Notice Reviewer: [id number] Alexi Cash Notice Issued Date-Time: 10/03/2020 12:15 Notice Type: IM Discharge Notice Notice Delivered To: Patient Relationship to Patient: Olive Grader Name: Delivery Method: HAND - Hand Delivered Zunilda Days: Prior Verbal Notification: Recipient Understood Notice: Yes Recipient Signature: Yes Med Rec Note Co-signed by Attending: Coverage Notice Comment: IMM SERVED AND EXPLAINED Reviewer: [id number] Alexi Cash Notice Issued Date-Time: 10/03/2020 12:15 Notice Type: Patient Choice Letter Notice Delivered To: Patient Relationship to Patient: Olive Grader Name: Delivery Method: HAND - Hand Delivered Zunilda Days: Prior Verbal Notification: Recipient Understood Notice: Yes Recipient Signature: Yes Med Rec Note Co-signed by Attending: Coverage Notice Comment: GARCIA FOR HOME HEALTH HE DIDN'T CARE Last DP export: 10/04/20 1:24 pm Patient Name: SHELIA HERNANDEZ Page [phone] at 1328 All edits/amendments must be made on the electronic document DICTATION DATE: 10/05/20 1328 STROKE PROGRAM COORDINATOR: LIZZIE 10/05/20 1328 RPT#: [id number] DC DATE: STATUS: ADM IN [facility] [address] [place] [address] END OF REPORT
[2020-10-05 16:44] VITALS: BP 138/68
[2020-10-05 17:30] LABS: ERYTHROCYTE SEDIMENTATION RATE 21 mm/hr (0-20)
[2020-10-05 20:29] VITALS: BP 129/67
[2020-10-06 01:40] VITALS: BP 159/81
[2020-10-06 05:54] VITALS: BP 172/77
[2020-10-06 06:10] LABS: HEMATOCRIT 28.5 % (42.0-54.0); HEMOGLOBIN 7.8 g/dL (13.5-17.5); LYMPHOCYTE ABS# 0.85 10x3/uL (1.32-3.57); MCHC 27.4 g/dL (31.0-37.0); MCV 80.5 fL (80.0-100.0); NEUTROPHIL ABS# 3.53 10x3/uL (1.78-5.38); RBC 3.54 10x6/uL (4.20-6.10); RDW 23.2 % (11.5-14.5); WBC 5.5 10x3/uL (4.8-10.8)
[2020-10-06 06:11] LABS: PLATELET COUNT 143 10x3/uL (130-400)
[2020-10-06 06:38] LABS: EOSINOPHILS 1 % (0-7); LYMPHOCYTES 30 % (15-50); MONOCYTES 1 % (2-11); NEUTROPHILS 66 % (40-80); PLATELET ESTIMATE NORMAL; TEAR DROP CELLS OCC
[2020-10-06 06:39] LABS: BURR CELLS OCC; SCHISTOCYTES OCC
[2020-10-06 06:47] LABS: ALBUMIN 2.2 g/dL (3.4-5.0); ANION GAP 17.2 mmol/L (8-16); BILIRUBIN - TOTAL 0.31 mg/dL (0.2-1.3); CALCIUM 7.9 mg/dL (8.5-10.1); CREATININE - SERUM 1.3 mg/dL (0.6-1.3); MAGNESIUM - SERUM 2.1 mg/dL (1.8-2.4); PHOSPHOROUS 3.6 mg/dL (2.5-4.9); POTASSIUM - SERUM 3.2 mmol/L (3.5-5.1); PROTEIN - SERUM 5.9 g/dL (6.4-8.2)
[2020-10-06 08:15] VITALS: BP 149/69
[2020-10-06 12:14] VITALS: BP 124/76
--- NOTE | 2020-10-06 12:46 | NUR ---
MIN ASSIT TO SOB AND TO STAND WALKED 250 FT BREATHING VERY HARD HALF WAY THRU THE WALK
--- NOTE | 2020-10-06 12:47 | NUR ---
MAX TO SOB ONCE ON THE SIDE ABLE TO HOLD HERSELF UP ON THE SIDE SAHIL TRANFSER TO CHAIR
--- NOTE | 2020-10-06 13:36 | NUR ---
1ST UNIT PRBC'S STARTED WITH NO S/S OF REACTION NOTED. DENIES ANY PAIN OR DISCOMFORT. ENCOURAGED TO USE CALL LIGHT FOR ASSSIT.
--- NOTE | 2020-10-06 16:25 | MORECARE ---
CASE MANAGEMENT DISCHARGE SUMMARY PATIENT: SHELIA HERNANDEZ UNIT: [id number] ADM DATE: 09/27/20 AGE: 65 : 54 SEX: M ROOM/BED: D.2207 AUTHOR: SARINA,DOC PHYSICIAN: REFERRING PHYSICIAN: MOON AYALA MD DATE OF SERVICE: 10/06/20 Discharge Plan Patient Name: SHELIA HERNANDEZ Facility: [facility]:[place] : 1955 Planned Disposition: Home Anticipated Discharge Date: Discharge Date: Expected LOS: Initial Reviewer: [email or web address] Initial Review Date: 09/27/2020 Generated: 10/06/20 5:25 pm Comments DCP- Discharge Planning Updated by [id number]: Lety Cash on 10/05/20 12:[address] I have ordered O2, walker and nebulizer from [facility], they should deliver to the hospital when patient is ready to discharge home [facility] will accept the patient if his home bed bug situation has been treated. DCP- Discharge Planning Updated by [email or web address]: Lety Cash on 10/04/20 1:[address] SENT WALK TEST AND CLINICAL TO [facility] [place] FOR O2 NEEDS DCP- Discharge Planning Updated by [email or web address]: Lety Cash on 10/03/20 12:[address] [facility] TAKES HIS INSURANCE SO I HAVE SENT THE REFERRAL TO THEM THEY WILL CALL ME BACK IF THEY HAVE ANY ISSUES IMMSERVED AND [facility] ALSO OBTAINED DCP- Discharge Planning Updated by [email or web address]: Lety Cash on 10/03/20 11:[address] MET WITH PATIENT ABOUT DC PLANS AND REHAB, HE DOES NOT WANT TO GO TO REHAB BUT HE IS AGREEABLE TO HOME HEALTH. GARCIA SIGNED FOR WHOEVER TAKES HIS INSURANCE HE APPEARED SOB IN THE ROOM TALKING WITH ME I HAVE ORDERED A WALK TEST TO SEE IF HE MIGHT NEED HOME O2 DCP- Discharge Planning Updated by [id number]: Ester Byrne on 09/28/20 3:[address] Patient plans to DC home and feels this is a safe discharge plan. Patient uses Dr. Luann Sosa as his PCP and [facility] pharmacy #[id number]. Patient is unsure of Arlin Hernandez phone number or contact information. DCPIA - Discharge Planning Initial Assessment Updated by [email or web address]: Ester Byrne on 09/28/20 4:42 pm * Is the patient Alert and Oriented? Yes * How many steps to enter\exit or inside your home? none * PCP Dr[facility] Luann Truong [facility] * Pharmacy [facility] pharmacy #[id number] * Preadmission Environment Home Alone * ADLs Independent * Other Equipment none * List name and contact numbers for known caregivers / representatives who currently or will assist patient after discharge: Arlin Chacon, number unknown * Verbal permission to speak to the caregivers and representatives has been obtained from the patient. Yes * Can the patient safely return to the preadmission environment? Yes * Has this patient been hospitalized within the prior 30 days at any hospital? No Coverage Notice Reviewer: [id number] Alexi Cash Notice Issued Date-Time: 10/03/2020 12:15 Notice Type: IM Discharge Notice Notice Delivered To: Patient Relationship to Patient: Emt Paramedic Name: Delivery Method: HAND - Hand Delivered Zunilda Days: Prior Verbal Notification: Recipient Understood Notice: Yes Recipient Signature: Yes Med Rec Note Co-signed by Attending: Coverage Notice Comment: IMM SERVED AND EXPLAINED Reviewer: [email or web address] Alexi Cash Notice Issued Date-Time: 10/03/2020 12:15 Notice Type: Patient Choice Letter Notice Delivered To: Patient Relationship to Patient: Emt Paramedic Name: Delivery Method: HAND - Hand Delivered Zunilda Days: Prior Verbal Notification: Recipient Understood Notice: Yes Recipient Signature: Yes Med Rec Note Co-signed by Attending: Coverage Notice Comment: GARCIA FOR HOME HEALTH HE DIDN'T CARE Last DP export: 10/05/20 12:28 pm Patient Name: SHELIA HERNANDEZ Page [phone] at 1625 All edits/amendments must be made on the electronic document DICTATION DATE: 10/06/20 1625 SHARED SERVICES MANAGER: LIZZIE 10/06/20 1625 RPT#: [id number] DC DATE: STATUS: ADM IN [facility] [address] [place] [address] END OF REPORT
--- NOTE | 2020-10-06 17:02 | MORECARE ---
CASE MANAGEMENT DISCHARGE SUMMARY PATIENT: SHELIA HERNANDEZ UNIT: [id number] ADM DATE: 09/27/20 AGE: 65 : 54 SEX: M ROOM/BED: D.2207 AUTHOR: KARRI BRANCH PHYSICIAN: REFERRING PHYSICIAN: MOON AYALA MD DATE OF SERVICE: 10/06/20 Discharge Plan Patient Name: SHELIA HERNANDEZ Facility: [facility]:[place] : 1955 Planned Disposition: Home Anticipated Discharge Date: Discharge Date: Expected LOS: Initial Reviewer: [email or web address] Initial Review Date: 09/27/2020 Generated: 10/06/20 6:02 pm Comments DCP- Discharge Planning Updated by [email or web address]: Mario Wells on 10/06/20 3:[address] Spoke with patient about DC needs. Patient stated that he did not want HHS. CM explained HHS to patient. Patient stated that he is fine with [facility]. Phone call to [facility], spoke with Mavis. Mavis stated that he could possibly SOC on Thursday. Referral Clinicals faxed to [facility]. CM will continue to follow and will assist as needed with dc plans/needs. DCP- Discharge Planning Updated by [email or web address]: Lety Cash on 10/05/20 12:[address] I have ordered O2, walker and nebulizer from [facility], they should deliver to the hospital when patient is ready to discharge home [facility] will accept the patient if his home bed bug situation has been treated. DCP- Discharge Planning Updated by [id number]: Lety Cash on 10/04/20 1:[address] SENT WALK TEST AND CLINICAL TO [facility] FOR O2 NEEDS DCP- Discharge Planning Updated by [email or web address]: Lety Cash on 10/03/20 12:[address] [facility] TAKES HIS INSURANCE SO I HAVE SENT THE REFERRAL TO THEM THEY WILL CALL ME BACK IF THEY HAVE ANY ISSUES IMMSERVED AND GARCIA ALSO OBTAINED DCP- Discharge Planning Updated by [id number]: Lety Cash on 10/03/20 11:[address] MET WITH PATIENT ABOUT DC PLANS AND REHAB, HE DOES NOT WANT TO GO TO REHAB BUT HE IS AGREEABLE TO HOME HEALTH. GARCIA SIGNED FOR WHOEVER TAKES HIS INSURANCE HE APPEARED SOB IN THE ROOM TALKING WITH ME I HAVE ORDERED A WALK TEST TO SEE IF HE MIGHT NEED HOME O2 DCP- Discharge Planning Updated by [email or web address]: Ester Byrne on 09/28/20 3:[address] Patient plans to DC home and feels this is a safe discharge plan. Patient uses Dr. Luann Sosa as his PCP and [facility] pharmacy #[id number]. Patient is unsure of Arlin Hernandez phone number or contact information. DCPIA - Discharge Planning Initial Assessment Updated by [email or web address]: Ester Byrne on 09/28/20 4:42 pm * Is the patient Alert and Oriented? Yes * How many steps to enter\exit or inside your home? none * PCP Dr. Luann Sosa - [facility] * Pharmacy [facility] pharmacy #[id number] * Preadmission Environment Home Alone * ADLs Independent * Other Equipment none * List name and contact numbers for known caregivers / representatives who currently or will assist patient after discharge: Arlin Chacon, number unknown * Verbal permission to speak to the caregivers and representatives has been obtained from the patient. Yes * Can the patient safely return to the preadmission environment? Yes * Has this patient been hospitalized within the prior 30 days at any hospital? No External Providers External Provider: [facility] Next Contact Date: Service Request Date: Service Type: Resolution: Reviewer: Comments: Coverage Notice Reviewer: [id number] Alexi Cash Notice Issued Date-Time: 10/03/2020 12:15 Notice Type: IM Discharge Notice Notice Delivered To: Patient Relationship to Patient: [employer] Name: Delivery Method: HAND - Hand Delivered Zunilda Days: Prior Verbal Notification: Recipient Understood Notice: Yes Recipient Signature: Yes Med Rec Note Co-signed by Attending: Coverage Notice Comment: IMM SERVED AND EXPLAINED Reviewer: [email or web address] Alexi Cash Notice Issued Date-Time: 10/03/2020 12:15 Notice Type: Patient Choice Letter Notice Delivered To: Patient Relationship to Patient: [employer] Name: Delivery Method: HAND - Hand Delivered Zunilda Days: Prior Verbal Notification: Recipient Understood Notice: Yes Recipient Signature: Yes Med Rec Note Co-signed by Attending: Coverage Notice Comment: GARCIA FOR HOME HEALTH HE DIDN'T CARE Last DP export: 10/06/20 3:25 pm Patient Name: SHELIA HERNANDEZ Page [phone] at 1702 All edits/amendments must be made on the electronic document DICTATION DATE: 10/06/201701 UTILITY TECHNICIAN: LIZZIE 10/06/201701 RPT#: [id number] DC DATE: STATUS: ADM IN [facility] [address] [place] [address] END OF REPORT
[2020-10-06 17:12] VITALS: BP 160/82
[2020-10-06 20:08] VITALS: BP 124/85
[2020-10-07 00:57] VITALS: BP 168/80
[2020-10-07 05:42] LABS: BASOPHILS 0.2 % (0-2); EOSINOPHILS 2.8 % (0-7); HEMATOCRIT 34.1 % (42.0-54.0); IMMATURE GRANULOCYTES 1.4 % (0-5); LYMPHOCYTE ABS# 1.01 10x3/uL (1.32-3.57); LYMPHOCYTES 17.7 % (15-50); MCH 23.8 pg (26.0-34.0); MCHC 29.6 g/dL (31.0-37.0); MCV 80.4 fL (80.0-100.0); MEAN PLATELET VOLUME 10.4 fL (7.4-10.4); NEUTROPHILS 62.9 % (40-80); RBC 4.24 10x6/uL (4.20-6.10); RDW 21.4 % (11.5-14.5); WBC 5.7 10x3/uL (4.8-10.8)
[2020-10-07 05:43] LABS: HEMOGLOBIN 10.1 g/dL (13.5-17.5); PLATELET COUNT 202 10x3/uL (130-400)
[2020-10-07 05:50] LABS: ALBUMIN 2.5 g/dL (3.4-5.0); ANION GAP 13.4 mmol/L (8-16); BILIRUBIN - TOTAL 0.37 mg/dL (0.2-1.3); CALCIUM 8.2 mg/dL (8.5-10.1); CREATININE - SERUM 1.2 mg/dL (0.6-1.3); MAGNESIUM - SERUM 2.1 mg/dL (1.8-2.4); PHOSPHOROUS 3.1 mg/dL (2.5-4.9); PROTEIN - SERUM 6.1 g/dL (6.4-8.2)
[2020-10-07 05:52] LABS: CARBON DIOXIDE 20.6 mmol/L (21.0-32.0)
[2020-10-07 05:57] VITALS: BP 197/84
[2020-10-07 08:37] VITALS: BP 156/69
[2020-10-07 12:27] VITALS: BP 162/82
[2020-10-07 16:31] VITALS: BP 161/73
[2020-10-07 20:21] VITALS: BP 182/75
--- NOTE | 2020-10-08 | NUR ---
PT IS RESTING QUIETLY. NO C/O
--- NOTE | 2020-10-08 01:38 | NUR ---
PT HAVING LOOSE BROWN STOOL. HAD "ACCIDENT" ON WAY TO BATHROOM. CLEANED PT UP. CHANGED GOWN AND SOCKS. PT VERY EXCORIATED PERIAREA, GROIN, BUTTOCKS AND BACK OF LEGS. APPLIED CAMOSEPTINE AND BEAUDREUX'S BUTT PASTE TO ALL REDDENED AREAS. GAVE 1 TAB IMMODIUM FOR LOOSE STOOL. CLEANED FLOOR FROM BED TO BATHROOM. NO OTHER NEEDS. WILL CONTINUE TO MONITOR.
--- NOTE | 2020-10-08 06:30 | NUR ---
BP 178/98 - GAVE APRESSOLINE 10 MG PO. FSBS 136 - NO COVERAGE PER SS. PT SLEEPY. AROUSED TO TAKE MEDS AND WENT BACK TO SLEEP.
--- NOTE | 2020-10-08 07:10 | NUR ---
ASSISTED PT FROM BATHROOM BACK TO BED. ASSISTED WITH KARL CARE, PT HAD LOOSE INCONTINENT BOWEL MOVEMENT. BOTTOM, GROIN, AND SCROTAL EXCORIATED. APPLIED CALASEMPTAMINE. PT REQUESTED PULL UP TO PUT ON DUE TO EPISODES OF DIARRHEA. PT DENIES PAIN AT THIS TIME. DENIES FURTHER NEEDS. CL WITHIN REACH. ENCOURAGED TO CALL WITH NEEDS. CONTINUE POC
[2020-10-08 08:02] LABS: HEMATOCRIT 36.9 % (42.0-54.0); HEMOGLOBIN 10.7 g/dL (13.5-17.5); LYMPHOCYTE ABS# 1.38 10x3/uL (1.32-3.57); MEAN PLATELET VOLUME 10.1 fL (7.4-10.4); NEUTROPHIL ABS# 3.31 10x3/uL (1.78-5.38); PLATELET COUNT 195 10x3/uL (130-400); RBC 4.46 10x6/uL (4.20-6.10); RDW 22.4 % (11.5-14.5); WBC 5.4 10x3/uL (4.8-10.8)
[2020-10-08 08:05] LABS: MCV 82.7 fL (80.0-100.0)
[2020-10-08 08:14] LABS: ALBUMIN 2.6 g/dL (3.4-5.0); ANION GAP 14.2 mmol/L (8-16); BILIRUBIN - TOTAL 0.41 mg/dL (0.2-1.3); CALCIUM 8.7 mg/dL (8.5-10.1); CARBON DIOXIDE 21.8 mmol/L (21.0-32.0); CREATININE - SERUM 1.1 mg/dL (0.6-1.3); MAGNESIUM - SERUM 1.9 mg/dL (1.8-2.4); PHOSPHOROUS 3.7 mg/dL (2.5-4.9); PROTEIN - SERUM 5.8 g/dL (6.4-8.2)
[2020-10-08 09:00] VITALS: BP 120/85
[2020-10-08 12:41] VITALS: BP 146/93
[2020-10-08 13:47] LABS: ANISOCYTOSIS OCC; CRENATED CELLS 1+; LYMPHOCYTES 19 % (15-50); MONOCYTES 14 % (2-11); NEUTROPHILS 66 % (40-80); PLATELET ESTIMATE NORMAL; PLATELET MORPHOLOGY PLT CLUMPS PRESENT
--- NOTE | 2020-10-08 14:00 | NUR ---
Nutrition follow-up: Pt receiving a renal consistent CHO diet; po intake ~60% of meals Labs reviewed; renal function WNL; glucose under good control + loose stool today Wt: 207# Pt s/p fall over the weekend Recommend changing diet order to Consistent CHO due to renal function WNL RDN will follow-up: 10/11/20
--- NOTE | 2020-10-08 15:35 | NUR ---
OT NOTE: NURSING STATED PT FELL THIS AM. NURSING STATED CLEAR TO PROCEED WITH THERAPY. PT REQUIRED THERAPEUTIC USE OF SELF FOR INCREASED PARTICIPATION. PT COMPLETED EOB SITTING WITH CGA. PT COMPLETED SUPINE TO SIT WITH CGA. PT COMPLETED SELF FEEDING AT EOB WITH SETUP. PT COMPLETED BED TO TOILET TSF WITH CGA. PT COMPLETED TOILET HYGIENE WITH MIN-MOD A. PT COMPLETED UE AROM EXS TOLERATED. PT EDUCATED ON SAFE TSF TECHNIQUES...TO SLOW DOWN AND USE CL FOR ASSISTANCE. PT EXHIBITED IMPULSIVITY AND IMPAIRED SAFETY AWARENESS. NURSING AWARE. [phone] THANK YOU,MAGDALENE LOYD
[2020-10-08 16:33] VITALS: BP 166/84
[2020-10-08 20:00] VITALS: BP 150/77
--- NOTE | 2020-10-08 20:00 | NUR ---
REPORT GIVEN BY EDUAR RICK
--- NOTE | 2020-10-08 20:00 | NUR ---
PT IS SITTING ON THE SIDE OF HIS BED. HE HAS NO C/O AT THIS TIME. HE TOOK HIS MEDS WELL. HE STATES THAT WHEN HE LAST WENT TO THE BR HE DIDN'T WIPE WELL. I CLEANED HIM UP AND PUT A NEW BRIEF ON HIM. HIS BOTTOM IS REALLY REDDENED. THERE WERE TOPICAL MEDS THAT WERE APPLIED. HE NOW HAS A BIG GLASS OF FRESTH ICE WATER. I ASKED HIM TO PLEASE NOT DANGLE HIS FEET B/C THIS DOES NOT HELP THE 4+ EDEMA HE HAS. I TOLD HIM THAT WHEN HE SAT IN THE CHAIR TO BE SURE TO ELEVATE HIS FEET. BS WAS WNL (135) AND NO INSULIN REQUIRED.
[2020-10-09] VITALS: BP 169/83
[2020-10-09 03:45] VITALS: BP 180/84
--- NOTE | 2020-10-09 06:14 | NUR ---
PT IS RESTING WELL. NO C/O REALLY SLEEPY.
[2020-10-09 07:12] LABS: ANION GAP 15.9 mmol/L (8-16); CALCIUM 8.2 mg/dL (8.5-10.1); CARBON DIOXIDE 21.6 mmol/L (21.0-32.0); CREATININE - SERUM 1.2 mg/dL (0.6-1.3); MAGNESIUM - SERUM 1.5 mg/dL (1.8-2.4); POTASSIUM - SERUM 3.5 mmol/L (3.5-5.1)
[2020-10-09 07:33] LABS: BASOPHILS 0.2 % (0-2); EOSINOPHILS 2.3 % (0-7); HEMOGLOBIN 10.5 g/dL (13.5-17.5); LYMPHOCYTE ABS# 0.84 10x3/uL (1.32-3.57); LYMPHOCYTES 16.4 % (15-50); MCH 24.4 pg (26.0-34.0); MCHC 29.2 g/dL (31.0-37.0); MCV 83.5 fL (80.0-100.0); MEAN PLATELET VOLUME 10.1 fL (7.4-10.4); MONOCYTES 10.7 % (2-11); NEUTROPHIL ABS# 3.56 10x3/uL (1.78-5.38); NEUTROPHILS 69.4 % (40-80); PLATELET COUNT 193 10x3/uL (130-400); RBC 4.31 10x6/uL (4.20-6.10); RDW 23.3 % (11.5-14.5); WBC 5.1 10x3/uL (4.8-10.8)
[2020-10-09 08:38] VITALS: BP 149/89
[2020-10-09 09:22] LABS: D-DIMER-QUANTITATIVE 3.34 ug/mLFEU (0.20-0.54)
--- NOTE | 2020-10-09 09:22 | NUR ---
DDIMER 3.34 REPORTED TO PATI ROUSSEAU.
[2020-10-09 09:29] LABS: C-REACTIVE PROTEIN 3.1 mg/dL (0.0-0.9)
--- NOTE | 2020-10-09 09:35 | NUR ---
ALERT AND ORIENTED. ASSESSMENT COMPLETE. BED LOW. CALL SEPULVEDA AND PERSONAL ITEMS IN REACH. WILL CONTINUE TO MONITOR.
[2020-10-09 10:41] LABS: SARS-CoV-2 ANTIGEN NEGATIVE- SARS-COV-2 (NEGATIVE)
--- NOTE | 2020-10-09 10:47 | NUR ---
IV ATTEMPTED BY THREE NURSES. FIVE STICKS TOTAL. FLASH GIVEN AND THEN VEIN BLEW EACH TIME. PATIENT DOES NOT WANT TO CONTINUE TO BE STUCK FOR IV. SPOKE WITH PATI ROUSSEAU D/T PATIENT HAS IV ABX DUE. STATES WILL TALK TO DR BELL ABOUT ABX. POSSIBLE LINE PLACEMENT. WAITING CALL BACK.
--- NOTE | 2020-10-09 10:57 | NUR ---
SPOKE WITH SHEREEN TODD ABOUT MOVING PATIENT TO [facility] 2 D/T PCR ORDERED AND PATIENT NOW PUI FOR COVID.
--- NOTE | 2020-10-09 11:11 | NUR ---
ATTEMPTED TO CALL REPORT TO REX ON M2. OFF FLOOR AT THIS TIME. CLINICAL NURSE EDUCATOR STATES WILL HAVE NURSE CALL BACK.
--- NOTE | 2020-10-09 11:20 | NUR ---
POWER WENT OUT WHILE MEDS BEING ADMINISTERED BY STUDENT. UNABLE TO DOCUMENT MEDS GIVEN NOW. STATES EMERITA STILL IN CHART BUT NOT. SPOKE WITH HAZEL IN IT WHO STATES WILL COME UP AND HELP WITH COMPUTER CHARTING.
--- NOTE | 2020-10-09 12:07 | NUR ---
REPORT CALLED TO REX ON M2. DENIES QUESTIONS.
--- NOTE | 2020-10-09 12:37 | NUR ---
TRANSFER FROM [facility] BY W/C. CALL LIGHT IN REACH. VERBAL CONSENT FOR CVL GIVEN. WILL CONT. PLAN OF CARE.
[2020-10-09 16:01] VITALS: BP 152/88
--- NOTE | 2020-10-09 16:10 | NUR ---
OT NOTE: PT COMPLETED ADL MOB TO TOILET WITH CGA. PT COMPLETED TOILETING WITH SBA. PT REQUIRED MOD A WITH GARMENT MANAGEMENT. PT REQUIRED MAX A FOR LB HYGIENE SECONDARY TO BM. PT COMPLETED UB BATHING TASKS WITH MIN A. PT REQUIRED MAX A WITH LB HYGIENE SECONDARY TO DECREASED TRUNK FLEXIBILITY. PT IS IMPULSIVE AT TIMES. [phone] THANK YOU,MAGDALENE LOYD
[2020-10-09 22:26] VITALS: BP 172/104
--- NOTE | 2020-10-09 22:32 | NUR ---
REPORT RECEIVED, WILL CONT POC. PT UP, SITTING ON SIDE OF BED, A&O. AUDIBLE WHEEZES HEARD UPON ENTRY OF ROOM. INSPIRATORY WHEEZES HEARD IN ALL LOBES OF BOTH LEFT AND RIGHT LUNGS. LUNG SOUNDS DIMINISHED. PTS BP 172/104, ADMINISTERED APRESOLINE PER EMAR ORDER. PT O2 SAT 87% ON 3L NC. INCREASED O2 TO 5L, O2 SAT 93%. NOTIFIED RT OF O2 AND WHEEZES. RT OBTAINED ORDERS FROM DR. NO FOR VENTOLIN PRN. RT ADMINISTERED VENTOLIN, WHEEZING HAS DECREASED. PT REPORTS EASE OF BREATHING. ASSESSMENT COMPLETED AT THIS TIME. PT DENIES NEEDS AT THIS TIME. BED LOCKED AND LOWERED, CALL LIGHT IN REACH. WILL CONT TO MONITOR.
[2020-10-10 04:56] VITALS: BP 147/90
[2020-10-10 06:19] LABS: ANION GAP 9.9 mmol/L (8-16); CALCIUM 8.3 mg/dL (8.5-10.1); CARBON DIOXIDE 25.8 mmol/L (21.0-32.0); CREATININE - SERUM 1.1 mg/dL (0.6-1.3); POTASSIUM - SERUM 3.7 mmol/L (3.5-5.1)
[2020-10-10 07:20] VITALS: BP 193/85
[2020-10-10 08:04] LABS: BASOPHILS 0.2 % (0-2); EOSINOPHILS 2.2 % (0-7); HEMATOCRIT 36.8 % (42.0-54.0); HEMOGLOBIN 10.4 g/dL (13.5-17.5); IMMATURE GRANULOCYTES 1.2 % (0-5); LYMPHOCYTE ABS# 1.05 10x3/uL (1.32-3.57); LYMPHOCYTES 16.3 % (15-50); MCH 24.3 pg (26.0-34.0); MCHC 28.3 g/dL (31.0-37.0); MEAN PLATELET VOLUME 9.8 fL (7.4-10.4); MONOCYTES 8.5 % (2-11); NEUTROPHIL ABS# 4.62 10x3/uL (1.78-5.38); NEUTROPHILS 71.6 % (40-80); PLATELET COUNT 189 10x3/uL (130-400); RBC 4.28 10x6/uL (4.20-6.10)
[2020-10-10 08:05] LABS: WBC 6.5 10x3/uL (4.8-10.8)
[2020-10-10 11:55] VITALS: BP 189/99
--- NOTE | 2020-10-10 15:57 | NUR ---
OT NOTE: PT EXHIBITED INCREASED CONFUSION. NURSING AWARE. PT REQUIRED MAX A WITH SIT TO STAND FOR TOILETING. PT REQUIRED MAX-TOTAL A WITH TOILET HYGIENE. PT FUNCTIONAL PERFORMANCE HAS DECLINED. [phone] THANK YOU,MAGDALENE LOYD
--- NOTE | 2020-10-10 19:10 | NUR ---
RAPID RESPONSE CALLED ON PT. PT VERY LETHARGIC AND O2 SAT 89% ON 11 LITERS HIGH FLOW, PT ABGS DRAWN AT THIS TIME, PT PLACED ON BIPAP AT 50% AT THIS TIME, O2 SAT 92% AT THIS TIME.
[2020-10-10 20:00] VITALS: BP 112/68
[2020-10-11] VITALS: BP 144/78
--- NOTE | 2020-10-11 02:15 | NUR ---
TEIXEIRA CATH PLACED IN PT AT THIS TIME, PT ATTEMPTING TO GET OUT OF BED, PT ON 50% BIPAP AT THIS TIME. PT RECEIVING LASIX AND HAS URINARY RETENTION OF 600CC URINE POST VOID.
--- NOTE | 2020-10-11 02:20 | NUR ---
I have reviewed this patient and I concur with the Shift Assessment completed by the Licensed Practical Nurse today this shift.
[2020-10-11 04:00] VITALS: BP 101/825
[2020-10-11 04:14] LABS: BASOPHILS 0.2 % (0-2); EOSINOPHILS 0.6 % (0-7); HEMATOCRIT 35.2 % (42.0-54.0); HEMOGLOBIN 9.9 g/dL (13.5-17.5); IMMATURE GRANULOCYTES 1.4 % (0-5); LYMPHOCYTE ABS# 0.61 10x3/uL (1.32-3.57); LYMPHOCYTES 9.6 % (15-50); MCH 24.3 pg (26.0-34.0); MCHC 28.1 g/dL (31.0-37.0); MCV 86.5 fL (80.0-100.0); MEAN PLATELET VOLUME 10.5 fL (7.4-10.4); MONOCYTES 9.5 % (2-11); NEUTROPHIL ABS# 4.98 10x3/uL (1.78-5.38); NEUTROPHILS 78.7 % (40-80); PLATELET COUNT 180 10x3/uL (130-400); RBC 4.07 10x6/uL (4.20-6.10); RDW 23.4 % (11.5-14.5); WBC 6.3 10x3/uL (4.8-10.8)
[2020-10-11 04:17] LABS: ANION GAP 9.5 mmol/L (8-16); CALCIUM 7.8 mg/dL (8.5-10.1); CARBON DIOXIDE 28.3 mmol/L (21.0-32.0); CREATININE - SERUM 1.1 mg/dL (0.6-1.3); POTASSIUM - SERUM 3.8 mmol/L (3.5-5.1)
[2020-10-11 07:13] VITALS: BP 160/81
--- NOTE | 2020-10-11 07:30 | NUR ---
REPORT RECIEVED. PT ON BIPAP. SAT 92%. NO DISTRESSS.
--- NOTE | 2020-10-11 10:16 | NUR ---
Nutrition Reassessment/Follow-up: Pt in droplet isolation; covid pending. Nursing reports pt coughs with pills sometimes; ST following. Diet: Renal ADA, Mech Soft PO intake: 50-100% (10/07); no PO recorded since then Wt: 206.9# (10/05) Last BM: 10/10 per chart Labs noted: Na 147, Glu 146, Ca 7.8, BUN 8, Cre 1.1, GFR 71 Meds noted: Lasix, KDur, Imodium, Protonix, Florajen, Humulin, zinc sulfate, vit C, vit D, electrolyte protocol Est needs: 7780-0431 kcal/day (25-30 kcal/kg adjusted BW of 69.9 kg) 70-85 g protein/day (1-1.2 g/kg adjusted BW) 2720-9759 mL H2O/day (1 mL/kcal) or per MD -Liberalize to cardiac carb consistent, mech soft diet; renal function improved. -Need new wt if possible. -RD will follow up within 4-5 days.
--- NOTE | 2020-10-11 10:19 | EC ---
PATIENT:SHELIA HERNANDEZ DATE OF SERVICE: 09/27/20 SEX: M MEDICAL RECORD: [id number] DATE OF : [birth year] LOCATION:D.M2 D.211 AGE OF PATIENT: 65 ADMISSION DATE: 09/27/20 REFERRING PHYSICIAN: INTERPRETING PHYSICIAN: ANTONIETA NDIAYE MD ECHOCARDIOGRAM REPORT ECHO CHARGES 4 ECHO COMPLETE Date: 10/09/20 CLINICAL DIAGNOSIS: WORSENING SOB, HTN ECHOCARDIOGRAPHIC MEASUREMENTS (adult normal given) AC root (d.<3.7cm) 2.6 cm LV Septum d (<1.2 cm> 1.1 cm Valve Excursion 1.8 cm LV Septum (systole) 1.4 cm Left Atria (s.<4.0cm> 3.4 cm LVPW d(<1.2cm) 0.9 cm RV (d.<2.3cm) 3.3 cm LVPW (sytole) 1.3 cm LV diastole(<5.6CM) 4.0 cm MV E-F(>70mm/sec) cm LV systole 3.0 cm LVOT Diameter 1.8 cm MV exc.(>10mm) 1.1 cm Est.ejection fraction (50-75%) % DOPPLER: LVIT cm/sec A 81 cm/sec E 66 cm/sec LA cm/sec RVSP 18 mmHg LVOT 150 cm/sec AOP1/2T m/s Asc. Ao 195 cm/sec RVOT 86 cm/sec RA cm/sec PA 73 cm/sec AV Gradient Peak 15.2 mmHg AV Mean 7.4 mmHg AV Area 2.4 cm MV Gradient Peak 10.0 mmHg MV Mean 5.7 mmHg MV Area cm COMMENTS: Custom Leather Products Maker: Demetrius GARCIA Improvement Coordinator: 3 Dr. Schneider TAPE# Pericardial Effusion N DATE OF SERVICE: Adequate 2D, color flow imaging, spectral Doppler, and M-Mode. No LVH. LV internal dimensions are normal. Wall motion normal. EF greater than or equal to 55%. Aortic valve is tricuspid. No evidence of stenosis by Doppler interrogation. Left atrium is normal. Mitral valve shows no prolapse. Trace MR. Right-sided chambers are grossly normal. Trace TR. TRANSINT:[id number] Voice Confirmation ID: [id number] DOCUMENT ID: [id number] ECHOCARDIOGRAM REPORT [id number] SHELIA HERNANDEZ ANTONIETA NDIAYE MD at 1019 CC: [id number] DICTATION DATE: 10/10/20808 DATA WAREHOUSING ENGINEER: 10/10/20 0858 ADM IN [place] [id number] [place] [id number]
[2020-10-11 11:27] VITALS: BP 151/80
[2020-10-11 15:15] VITALS: BP 180/82
--- NOTE | 2020-10-11 15:27 | NUR ---
OT NOTE: PT CHANGED TO 50% BIPAP TODAY. HE WAS ORIENTED TO NAME AND PLACE, AND ABLE TO FOLLOW SIMPLE COMMANDS. BED MOB WITH MOD ASSIST. SIMPLE GROOMING WITH MIN ASSIST. UNABLE TO TOLERATE INCREASED THERAPY TODAY DUE TO INCREASED 02 REQUIREMENTS. MARY CASTILLO, OTR/L [phone]
--- NOTE | 2020-10-11 16:47 | NUR ---
OT NOTE: PT COMPLETED BED MOB TASKS WITH MIN A. PT REQUIRED TOTAL WITH LB HYGIENE TASKS. [phone] THANK YOU,MAGDALENE LOYD
--- NOTE | 2020-10-11 19:30 | NUR ---
PT IN BED, EYES CLOSED, RESP EVEN AND UNLABORED, PT ON BIPAP AT 50% AT THIS TIME, NO DISTRESS NOTED, CL IN REACH, SR UP X 2.
[2020-10-11 20:13] VITALS: BP 152/74
[2020-10-12 00:45] VITALS: BP 188/89
--- NOTE | 2020-10-12 01:49 | NUR ---
I have reviewed this patient and I concur with the Shift Assessment completed by the Licensed Practical Nurse today this shift.
[2020-10-12 04:55] VITALS: BP 156/88
[2020-10-12 05:26] LABS: ANION GAP 8.3 mmol/L (8-16); CALCIUM 8.5 mg/dL (8.5-10.1); CARBON DIOXIDE 32.5 mmol/L (21.0-32.0); CREATININE - SERUM 1.1 mg/dL (0.6-1.3); POTASSIUM - SERUM 3.8 mmol/L (3.5-5.1)
[2020-10-12 07:22] LABS: BASOPHILS 0.2 % (0-2); EOSINOPHILS 1.5 % (0-7); HEMATOCRIT 37.4 % (42.0-54.0); HEMOGLOBIN 10.8 g/dL (13.5-17.5); IMMATURE GRANULOCYTES 0.9 % (0-5); LYMPHOCYTES 12.1 % (15-50); MCH 24.9 pg (26.0-34.0); MCHC 28.9 g/dL (31.0-37.0); MCV 86.2 fL (80.0-100.0); MONOCYTES 11.5 % (2-11); NEUTROPHILS 73.8 % (40-80); PLATELET COUNT 199 10x3/uL (130-400); RBC 4.34 10x6/uL (4.20-6.10); RDW 24.4 % (11.5-14.5); WBC 6.6 10x3/uL (4.8-10.8)
[2020-10-12 08:27] VITALS: BP 158/89
[2020-10-12 12:11] VITALS: BP 151/91
--- NOTE | 2020-10-12 12:15 | NUR ---
OT NOTE: PT COMPLETED ADL MOB WITH CGA . PT COMPLETED EOB SITTING WITH SBA. PT COMPLETED BUE AROM EXS TOLERATED. PT STATED HE CANNOT COMPLETED LB HYGIENE BUT DID NOT EXHIBIT UE PAIN OR DECREASED AROM. PT REQUIRED TOTAL A WITH LB HYGIENE. [id number] CHRISTIAN NICOLE COTA
--- NOTE | 2020-10-12 13:38 | MORECARE ---
CASE MANAGEMENT DISCHARGE SUMMARY PATIENT: SHELIA HERNANDEZ UNIT: [id number] ADM DATE: 09/27/20 AGE: 65 : 53 SEX: M ROOM/BED: D.9089 AUTHOR: SARINADOC PHYSICIAN: REFERRING PHYSICIAN: MOON AYALA MD DATE OF SERVICE: 10/12/20 Discharge Plan Patient Name: SHELIA HERNANDEZ Facility: [facility]:[place] : 1955 Planned Disposition: Home Anticipated Discharge Date: Discharge Date: Expected LOS: Initial Reviewer: [email or web address] Initial Review Date: 09/27/2020 Generated: 10/12/20 2:38 pm Comments DCP- Discharge Planning Updated by [email or web address]: Alanis Joseph on 10/12/20 12:[address] CM met with patient to discuss LTACH. I gave him a list of LTACH and he is looking over the list. He is NOT in agreement at this time for a LTACH. I have asked him to review the list and I will speak with him this weekend. CM will continue to follow and assist with discharge planning/needs. DCP- Discharge Planning Updated by [email or web address]: Mario Wells on 10/06/20 3:[address] Spoke with patient about DC needs. Patient stated that he did not want HHS. CM explained HHS to patient. Patient stated that he is fine with [facility]. Phone call to [facility], spoke with Mavis. Mavis stated that he could possibly SOC on Thursday. Referral Clinicals faxed to [facility]. CM will continue to follow and will assist as needed with dc plans/needs. DCP- Discharge Planning Updated by [email or web address]: Lety Cash on 10/05/20 12:[address] I have ordered O2, walker and nebulizer from [facility], they should deliver to the hospital when patient is ready to discharge home [facility] will accept the patient if his home bed bug situation has been treated. DCP- Discharge Planning Updated by [email or web address]: Lety Cash on 10/04/20 1:[address] SENT WALK TEST AND CLINICAL TO [facility] FOR O2 NEEDS DCP- Discharge Planning Updated by [email or web address]: Lety Cash on 10/03/20 12:[address] [facility] TAKES HIS INSURANCE SO I HAVE SENT THE REFERRAL TO THEM THEY WILL CALL ME BACK IF THEY HAVE ANY ISSUES IMMSERVED AND GARCIA ALSO OBTAINED DCP- Discharge Planning Updated by [email or web address]: Lety Cash on 10/03/20 11:[address] MET WITH PATIENT ABOUT DC PLANS AND REHAB, HE DOES NOT WANT TO GO TO REHAB BUT HE IS AGREEABLE TO HOME HEALTH. GARCIA SIGNED FOR WHOEVER TAKES HIS INSURANCE HE APPEARED SOB IN THE ROOM TALKING WITH ME I HAVE ORDERED A WALK TEST TO SEE IF HE MIGHT NEED HOME O2 DCP- Discharge Planning Updated by [email or web address]: Ester Byrne on 09/28/20 3:[address] Patient plans to DC home and feels this is a safe discharge plan. Patient uses Dr. Luann Sosa as his PCP and [facility] pharmacy #[id number]. Patient is unsure of Arlin Hernandez phone number or contact information. DCPIA - Discharge Planning Initial Assessment Updated by [email or web address]: Ester Byrne on 09/28/20 4:42 pm * Is the patient Alert and Oriented? Yes * How many steps to enter\exit or inside your home? none * PCP Dr. Luann Sosa - [facility] * Pharmacy [facility] pharmacy #[id number] * Preadmission Environment Home Alone * ADLs Independent * Other Equipment none * List name and contact numbers for known caregivers / representatives who currently or will assist patient after discharge: Arlin Chacon, number unknown * Verbal permission to speak to the caregivers and representatives has been obtained from the patient. Yes * Can the patient safely return to the preadmission environment? Yes * Has this patient been hospitalized within the prior 30 days at any hospital? No Coverage Notice Reviewer: [id number] Alexi Cash Notice Issued Date-Time: 10/03/2020 12:15 Notice Type: IM Discharge Notice Notice Delivered To: Patient Relationship to Patient: Cage Tender Name: Delivery Method: HAND - Hand Delivered Zunilda Days: Prior Verbal Notification: Recipient Understood Notice: Yes Recipient Signature: Yes Med Rec Note Co-signed by Attending: Coverage Notice Comment: IMM SERVED AND EXPLAINED Reviewer: [email or web address] Alexi Cash Notice Issued Date-Time: 10/03/2020 12:15 Notice Type: Patient Choice Letter Notice Delivered To: Patient Relationship to Patient: Cage Tender Name: Delivery Method: HAND - Hand Delivered Zunilda Days: Prior Verbal Notification: Recipient Understood Notice: Yes Recipient Signature: Yes Med Rec Note Co-signed by Attending: Coverage Notice Comment: GARCIA FOR HOME HEALTH HE DIDN'T CARE Last DP export: 10/06/20 4:02 pm Patient Name: SHELIA HERNANDEZ Page [phone] at 1338 All edits/amendments must be made on the electronic document DICTATION DATE: 10/12/201337 BUSINESS PROCESS ANALYST: LIZZIE 10/12/20 1338 RPT#: [id number] DC DATE: STATUS: ADM IN [facility] [address] [place] [address] END OF REPORT
[2020-10-12 15:58] VITALS: BP 143/77
--- NOTE | 2020-10-12 19:30 | NUR ---
PT IN BED, AAO X 2, RESP EVEN AND UNLABORED, NO DISTRESS NOTED, CL IN REACH, SR UP X 2.
[2020-10-12 20:57] VITALS: BP 168/81
[2020-10-13 00:30] VITALS: BP 148/69
[2020-10-13 03:29] LABS: BASOPHILS 0.2 % (0-2); EOSINOPHILS 2.5 % (0-7); HEMATOCRIT 36.6 % (42.0-54.0); HEMOGLOBIN 10.4 g/dL (13.5-17.5); LYMPHOCYTE ABS# 0.75 10x3/uL (1.32-3.57); LYMPHOCYTES 14.5 % (15-50); MCH 24.2 pg (26.0-34.0); MCHC 28.4 g/dL (31.0-37.0); MCV 85.3 fL (80.0-100.0); MEAN PLATELET VOLUME 10.1 fL (7.4-10.4); MONOCYTES 13.7 % (2-11); NEUTROPHIL ABS# 3.52 10x3/uL (1.78-5.38); NEUTROPHILS 68.1 % (40-80); PLATELET COUNT 211 10x3/uL (130-400); RBC 4.29 10x6/uL (4.20-6.10); RDW 24.5 % (11.5-14.5); WBC 5.2 10x3/uL (4.8-10.8)
[2020-10-13 03:36] LABS: ANION GAP 3.7 mmol/L (8-16); CALCIUM 8.8 mg/dL (8.5-10.1); CARBON DIOXIDE 35.7 mmol/L (21.0-32.0); CREATININE - SERUM 1.2 mg/dL (0.6-1.3); POTASSIUM - SERUM 3.4 mmol/L (3.5-5.1)
[2020-10-13 05:13] VITALS: BP 146/71
[2020-10-13 07:10] VITALS: BP 135/73
--- NOTE | 2020-10-13 10:41 | NUR ---
NOTIFIED HR 149 WITH B/P 169/118. EKG COMPLETED ORDERED.
[2020-10-13 11:18] VITALS: BP 141/69
[2020-10-13 16:14] VITALS: BP 130/78
--- NOTE | 2020-10-13 19:30 | NUR ---
PT IN BED, AAO X 3, RESP EVEN AND UNLABORED, NO DISTRESS NOTED, CL IN REACH, SR UP X 2.
[2020-10-13 20:43] VITALS: BP 146/72
[2020-10-14 00:46] VITALS: BP 122/71
--- NOTE | 2020-10-14 03:08 | NUR ---
I have reviewed this patient and I concur with the Shift Assessment completed by the Licensed Practical Nurse today this shift.
[2020-10-14 05:41] VITALS: BP 148/78
[2020-10-14 05:51] LABS: BASOPHILS 0.2 % (0-2); EOSINOPHILS 1.7 % (0-7); HEMATOCRIT 36.9 % (42.0-54.0); HEMOGLOBIN 10.7 g/dL (13.5-17.5); IMMATURE GRANULOCYTES 0.8 % (0-5); LYMPHOCYTE ABS# 0.66 10x3/uL (1.32-3.57); LYMPHOCYTES 10.9 % (15-50); MCH 24.6 pg (26.0-34.0); MCV 84.8 fL (80.0-100.0); MEAN PLATELET VOLUME 10.8 fL (7.4-10.4); MONOCYTES 13.8 % (2-11); NEUTROPHIL ABS# 4.38 10x3/uL (1.78-5.38); NEUTROPHILS 72.6 % (40-80); PLATELET COUNT 193 10x3/uL (130-400); RBC 4.35 10x6/uL (4.20-6.10); RDW 24.2 % (11.5-14.5)
[2020-10-14 06:03] LABS: ANION GAP 6.8 mmol/L (8-16); CALCIUM 8.5 mg/dL (8.5-10.1); CARBON DIOXIDE 36.7 mmol/L (21.0-32.0); CREATININE - SERUM 1.2 mg/dL (0.6-1.3); POTASSIUM - SERUM 3.5 mmol/L (3.5-5.1)
[2020-10-14 07:10] VITALS: BP 170/91
[2020-10-14 14:00] VITALS: BP 152/89
[2020-10-14 16:26] VITALS: BP 153/68
[2020-10-14 21:30] VITALS: BP 143/71
[2020-10-15] VITALS (7 sets, daily range): BP systolic 122–162; BP diastolic 58–81
--- NOTE | 2020-10-15 02:00 | NUR ---
ALERTED THAT PTS O2 SAT 76, PTS O2 OFF. PT UNAWARE THAT HE HAD IT OFF. REPLACED HIS O2 9L HF, SATS UP TO 95. NO DISTRESS.
--- NOTE | 2020-10-15 06:15 | NUR ---
RIJ DRSNG CHANGED, ONE STITCH INTACT, ONE STITCH NO LONGER INTACT. PT TOLERATED WELL.
[2020-10-15 06:58] LABS: ANION GAP 6.2 mmol/L (8-16); CALCIUM 9.1 mg/dL (8.5-10.1); CARBON DIOXIDE 38.5 mmol/L (21.0-32.0); CREATININE - SERUM 1.2 mg/dL (0.6-1.3); POTASSIUM - SERUM 3.7 mmol/L (3.5-5.1)
--- NOTE | 2020-10-15 07:45 | NUR ---
LAYING IN BED RESTING, NO DISTRESS NOTED, NO NEEDS VOICED, CALL LIGHT IN REACH, WILL MONITOR
[2020-10-15 08:38] LABS: BASOPHILS 0.2 % (0-2); EOSINOPHILS 0.5 % (0-7); HEMATOCRIT 37.8 % (42.0-54.0); HEMOGLOBIN 10.9 g/dL (13.5-17.5); IMMATURE GRANULOCYTES 0.3 % (0-5); LYMPHOCYTE ABS# 1.01 10x3/uL (1.32-3.57); LYMPHOCYTES 16.2 % (15-50); MCH 24.5 pg (26.0-34.0); MCHC 28.8 g/dL (31.0-37.0); MCV 84.9 fL (80.0-100.0); MONOCYTES 11.6 % (2-11); NEUTROPHIL ABS# 4.43 10x3/uL (1.78-5.38); NEUTROPHILS 71.2 % (40-80); PLATELET COUNT 222 10x3/uL (130-400); RBC 4.45 10x6/uL (4.20-6.10); RDW 23.7 % (11.5-14.5); WBC 6.2 10x3/uL (4.8-10.8)
--- NOTE | 2020-10-15 10:00 | NUR ---
UP TO BSC, MODERATE BM NOTED, ASSISTED BACK TO BED, CALL LIGHT IN REACH, WILL MONITOR
--- NOTE | 2020-10-15 16:18 | NUR ---
laying in bed watching tv, no needs voiced, call light in reach, will monitor
--- NOTE | 2020-10-15 19:19 | NUR ---
RECIEVED KWAME IN BED WITH HOB ELEVATED. ALERT AND ORIETNED X4. O2 AT 9 LITERS PER HF CANNULA. RT CHEST CVL WITH NS AT 50CC/HR. F/C IN PLACE. DENIES ANY NEEDS AT THIS TIME.
[2020-10-16 05:11] VITALS: BP 123/49
[2020-10-16 06:09] LABS: BASOPHILS 0.2 % (0-2); EOSINOPHILS 1.8 % (0-7); HEMATOCRIT 36.4 % (42.0-54.0); HEMOGLOBIN 10.3 g/dL (13.5-17.5); IMMATURE GRANULOCYTES 0.7 % (0-5); LYMPHOCYTE ABS# 0.75 10x3/uL (1.32-3.57); LYMPHOCYTES 16.8 % (15-50); MCH 24.4 pg (26.0-34.0); MCHC 28.3 g/dL (31.0-37.0); MCV 86.3 fL (80.0-100.0); MEAN PLATELET VOLUME 10.2 fL (7.4-10.4); MONOCYTES 14.8 % (2-11); NEUTROPHIL ABS# 2.94 10x3/uL (1.78-5.38); NEUTROPHILS 65.7 % (40-80); PLATELET COUNT 219 10x3/uL (130-400); RBC 4.22 10x6/uL (4.20-6.10); RDW 23.6 % (11.5-14.5)
[2020-10-16 06:16] LABS: WBC 4.5 10x3/uL (4.8-10.8)
[2020-10-16 06:22] LABS: ANION GAP 7.1 mmol/L (8-16); CALCIUM 8.1 mg/dL (8.5-10.1); CARBON DIOXIDE 35.2 mmol/L (21.0-32.0); CREATININE - SERUM 1.1 mg/dL (0.6-1.3); MAGNESIUM - SERUM 1.6 mg/dL (1.8-2.4); PHOSPHOROUS 3.6 mg/dL (2.5-4.9); POTASSIUM - SERUM 3.3 mmol/L (3.5-5.1)
--- NOTE | 2020-10-16 07:29 | NUR ---
Nutrition Follow-up: Good PO intake reported. Awaiting placement. Diet: Cardiac, Carb Consistent, Mech Soft No new wt Last BM: 10/15 Labs noted: K+ 3.3, Glu 147, Ca 8.1, Mg 1.6 Meds noted: Lasix, KDur, Protonix, Humulin, zinc sulfate, vit C, vit D, NS @ 50, electrolyte protocol -RD will follow up within 7 days if pt still admitted.
[2020-10-16 07:30] VITALS: BP 108/60
[2020-10-16 11:00] VITALS: BP 112/63
--- NOTE | 2020-10-16 13:41 | NUR ---
OT NOTE: PT COMPLETED BED MOB TASKS WITH CGA. PT COMPLETED BUE AROM EXERCISES. PT COMPLETED UB HYGIENE WITH SETUP. 1120 THANK YOU,MAGDALENE LOYD
[2020-10-16 15:00] VITALS: BP 110/68
--- NOTE | 2020-10-16 19:53 | NUR ---
RECIEVED UP IN BED WITH EYES OPENA ND TV ON. ALERT AND ORIENTED X4 WITH PERIODS OF CONFUSION. RT IJ WITH NS AT 50CC/HR. UP WITH ASSIST TO BEDSIDE COMMODE. IS INCONTINENT OF BOWEL. DENIES ANY NEEDS AT THIS TIME.
[2020-10-16 23:11] VITALS: BP 115/67
[2020-10-17 05:24] VITALS: BP 130/79
[2020-10-17 06:38] LABS: ANION GAP 7.1 mmol/L (8-16); CALCIUM 9.3 mg/dL (8.5-10.1); CARBON DIOXIDE 35.9 mmol/L (21.0-32.0); CREATININE - SERUM 1.2 mg/dL (0.6-1.3); PHOSPHOROUS 3.4 mg/dL (2.5-4.9)
[2020-10-17 07:41] LABS: BASOPHILS 0.3 % (0-2); EOSINOPHILS 1.7 % (0-7); HEMATOCRIT 39.9 % (42.0-54.0); HEMOGLOBIN 11.4 g/dL (13.5-17.5); IMMATURE GRANULOCYTES 0.7 % (0-5); LYMPHOCYTE ABS# 1.71 10x3/uL (1.32-3.57); LYMPHOCYTES 24.7 % (15-50); MCH 24.6 pg (26.0-34.0); MCHC 28.6 g/dL (31.0-37.0); MEAN PLATELET VOLUME 10.9 fL (7.4-10.4); MONOCYTES 1.9 % (2-11); NEUTROPHIL ABS# 4.88 10x3/uL (1.78-5.38); NEUTROPHILS 70.7 % (40-80); PLATELET COUNT 229 10x3/uL (130-400); RBC 4.64 10x6/uL (4.20-6.10); RDW 23.2 % (11.5-14.5)
[2020-10-17 07:56] LABS: WBC 6.9 10x3/uL (4.8-10.8)
[2020-10-17 08:52] VITALS: BP 187/87
--- NOTE | 2020-10-17 13:57 | MORECARE ---
CASE MANAGEMENT DISCHARGE SUMMARY PATIENT: SHELIA HERNANDEZ UNIT: [id number] ADM DATE: 09/27/20 AGE: 65 : 53 SEX: M ROOM/BED: D.2363 AUTHOR: SARINADOC PHYSICIAN: REFERRING PHYSICIAN: MOON AYALA MD DATE OF SERVICE: 10/17/20 Discharge Plan Patient Name: SHELIA HERNANDEZ Facility: [facility]:[place] : 1955 Planned Disposition: Home Anticipated Discharge Date: Discharge Date: Expected LOS: Initial Reviewer: [email or web address] Initial Review Date: 09/27/2020 Generated: 10/17/20 2:56 pm Comments DCP- Discharge Planning Updated by [email or web address]: Alanis Joseph on 10/17/20 12:[address]. Ni. He states OK with him for LTACH referral. Dr. Ni spoke with the patient concerning LTACH and he refuses at this time. CM will continue to follow and assist with DC planning/needs. DCP- Discharge Planning Updated by [id number]: Alanis Opal on 10/12/20 12:[address] CM met with patient to discuss LTACH. I gave him a list of LTACH and he is looking over the list. He is NOT in agreement at this time for a LTACH. I have asked him to review the list and I will speak with him this weekend. CM will continue to follow and assist with discharge planning/needs. DCP- Discharge Planning Updated by [id number]: Mario Wells on 10/06/20 3:[address] Spoke with patient about DC needs. Patient stated that he did not want HHS. CM explained HHS to patient. Patient stated that he is fine with [facility]. Phone call to [facility], spoke with Mavis. Mavis stated that he could possibly SOC on Thursday. Referral Clinicals faxed to [facility]. CM will continue to follow and will assist as needed with dc plans/needs. DCP- Discharge Planning Updated by [id number]: Lety Cash on 10/05/20 12:[address] I have ordered O2, walker and nebulizer from [facility], they should deliver to the hospital when patient is ready to discharge home [facility] will accept the patient if his home bed bug situation has been treated. DCP- Discharge Planning Updated by [email or web address]: Lety Cash on 10/04/20 1:[address] SENT WALK TEST AND CLINICAL TO [facility] FOR O2 NEEDS DCP- Discharge Planning Updated by [email or web address]: Lety Cash on 10/03/20 12:[address] [facility] TAKES HIS INSURANCE SO I HAVE SENT THE REFERRAL TO THEM THEY WILL CALL ME BACK IF THEY HAVE ANY ISSUES IMMSERVED AND GARCIA ALSO OBTAINED DCP- Discharge Planning Updated by [email or web address]: Lety Cash on 10/03/20 11:[address] MET WITH PATIENT ABOUT DC PLANS AND REHAB, HE DOES NOT WANT TO GO TO REHAB BUT HE IS AGREEABLE TO HOME HEALTH. GARCIA SIGNED FOR WHOEVER TAKES HIS INSURANCE HE APPEARED SOB IN THE ROOM TALKING WITH ME I HAVE ORDERED A WALK TEST TO SEE IF HE MIGHT NEED HOME O2 DCP- Discharge Planning Updated by [email or web address]: Ester Byrne on 09/28/20 3:[address] Patient plans to DC home and feels this is a safe discharge plan. Patient uses Dr. Luann Sosa as his PCP and [facility] pharmacy #[id number]. Patient is unsure of Arlin Hernandez phone number or contact information. DCPIA - Discharge Planning Initial Assessment Updated by [email or web address]: Ester Byrne on 09/28/20 4:42 pm * Is the patient Alert and Oriented? Yes * How many steps to enter\exit or inside your home? none * PCP Dr. Luann Sosa - [facility] * Pharmacy [facility] pharmacy #[id number] * Preadmission Environment Home Alone * ADLs Independent * Other Equipment none * List name and contact numbers for known caregivers / representatives who currently or will assist patient after discharge: Arlin Chacon, number unknown * Verbal permission to speak to the caregivers and representatives has been obtained from the patient. Yes * Can the patient safely return to the preadmission environment? Yes * Has this patient been hospitalized within the prior 30 days at any hospital? No Coverage Notice Reviewer: [id number] - Lety Larsonken Notice Issued Date-Time: 10/03/2020 12:15 Notice Type: IM Discharge Notice Notice Delivered To: Patient Relationship to Patient: Cabin Service Agent Name: Delivery Method: HAND - Hand Delivered Zunilda Days: Prior Verbal Notification: Recipient Understood Notice: Yes Recipient Signature: Yes Med Rec Note Co-signed by Attending: Coverage Notice Comment: IMM SERVED AND EXPLAINED Reviewer: [id number] Alexi Cash Notice Issued Date-Time: 10/03/2020 12:15 Notice Type: Patient Choice Letter Notice Delivered To: Patient Relationship to Patient: Cabin Service Agent Name: Delivery Method: HAND - Hand Delivered Zunilda Days: Prior Verbal Notification: Recipient Understood Notice: Yes Recipient Signature: Yes Med Rec Note Co-signed by Attending: Coverage Notice Comment: GARCIA FOR HOME HEALTH HE DIDN'T CARE Last DP export: 10/12/20 12:38 p Patient Name: SHELIA HERNANDEZ Page [phone] at 1357 All edits/amendments must be made on the electronic document DICTATION DATE: 10/17/20 1356 GROCERY CHECKER: LIZZIE 10/17/20 1356 RPT#: [id number] DC DATE: STATUS: ADM IN [facility] [address] [place] [address] END OF REPORT
--- NOTE | 2020-10-17 20:08 | NUR ---
RECIEVED UP IN BED WITH EYES OPENA ND TV ON. ALERT AND ORIETNED X4. UP WITH ASSIST TO BEDSIDE COMMODE. RT IJ SL. REMAINS 13 LITERS HF CANNULA. F/C INTACT WITH CLEAR YELLOW URINE DRAINING TOO BEDSIDE DRAINAGE BAG. DENIES ANY NEEDS AT THIS TIME.
[2020-10-17 22:11] VITALS: BP 141/71
[2020-10-18 00:42] VITALS: BP 152/75
[2020-10-18 04:52] VITALS: BP 149/75
[2020-10-18 06:44] LABS: ANION GAP 6.4 mmol/L (8-16); CALCIUM 9.8 mg/dL (8.5-10.1); CARBON DIOXIDE 35.6 mmol/L (21.0-32.0); CREATININE - SERUM 1.2 mg/dL (0.6-1.3); MAGNESIUM - SERUM 2.3 mg/dL (1.8-2.4); PHOSPHOROUS 3.4 mg/dL (2.5-4.9)
[2020-10-18 07:39] VITALS: BP 146/78
[2020-10-18 08:14] LABS: BASOPHILS 0.3 % (0-2); EOSINOPHILS 1.8 % (0-7); HEMATOCRIT 43.6 % (42.0-54.0); HEMOGLOBIN 12.4 g/dL (13.5-17.5); IMMATURE GRANULOCYTES 0.5 % (0-5); LYMPHOCYTE ABS# 0.94 10x3/uL (1.32-3.57); LYMPHOCYTES 12.8 % (15-50); MCH 24.7 pg (26.0-34.0); MCHC 28.4 g/dL (31.0-37.0); MCV 86.9 fL (80.0-100.0); MONOCYTES 13.3 % (2-11); NEUTROPHIL ABS# 5.22 10x3/uL (1.78-5.38); NEUTROPHILS 71.3 % (40-80); PLATELET COUNT 246 10x3/uL (130-400); RBC 5.02 10x6/uL (4.20-6.10); RDW 23.1 % (11.5-14.5); WBC 7.3 10x3/uL (4.8-10.8)
[2020-10-18 11:24] VITALS: BP 139/64
[2020-10-18 16:13] VITALS: BP 141/77
--- NOTE | 2020-10-18 19:30 | NUR ---
PT IN BED, EYES CLOSED, RESP EVEN AND UNLABORED, NO DISTRESS NOTED, CL IN REACH, SR UP X 2.
[2020-10-18 22:13] VITALS: BP 177/84
[2020-10-19 00:25] VITALS: BP 157/69
[2020-10-19 04:16] VITALS: BP 146/66
[2020-10-19 04:29] LABS: HEMATOCRIT 41.6 % (42.0-54.0); LYMPHOCYTES 20.4 % (15-50); MCH 25.3 pg (26.0-34.0); MCHC 28.8 g/dL (31.0-37.0); MCV 87.6 fL (80.0-100.0); MEAN PLATELET VOLUME 11.3 fL (7.4-10.4); NEUTROPHILS 70.7 % (40-80); PLATELET COUNT 233 10x3/uL (130-400); RBC 4.75 10x6/uL (4.20-6.10); RDW 22.6 % (11.5-14.5); WBC 6.9 10x3/uL (4.8-10.8)
[2020-10-19 05:17] LABS: ANION GAP 6.2 mmol/L (8-16); CALCIUM 9.3 mg/dL (8.5-10.1); CARBON DIOXIDE 35.8 mmol/L (21.0-32.0); CREATININE - SERUM 1.3 mg/dL (0.6-1.3); MAGNESIUM - SERUM 2.2 mg/dL (1.8-2.4)
[2020-10-19 08:34] VITALS: BP 156/86
[2020-10-19 11:56] VITALS: BP 146/78
[2020-10-19 15:04] VITALS: BP 152/72
--- NOTE | 2020-10-19 19:27 | NUR ---
RECEIVED REPORT, WILL ASSUME CARE OF PT, WATCHING TV, DENIES ANY NEEDS AT THIS TIME, BED IS LOW, SRX2, CALL LIGHT IN REACH, WILL CONTINUE PLAN OF CARE
[2020-10-19 20:44] VITALS: BP 145/73
[2020-10-20 01:14] VITALS: BP 147/73
--- NOTE | 2020-10-20 03:03 | NUR ---
I have reviewed this patient and I concur with the Shift Assessment completed by the Licensed Practical Nurse today this shift.
[2020-10-20 05:34] VITALS: BP 162/81
[2020-10-20 06:00] LABS: BASOPHILS 0.3 % (0-2); EOSINOPHILS 1.9 % (0-7); HEMATOCRIT 41.5 % (42.0-54.0); HEMOGLOBIN 11.9 g/dL (13.5-17.5); IMMATURE GRANULOCYTES 0.6 % (0-5); LYMPHOCYTE ABS# 1.17 10x3/uL (1.32-3.57); LYMPHOCYTES 18.8 % (15-50); MCH 25.1 pg (26.0-34.0); MCHC 28.7 g/dL (31.0-37.0); MCV 87.4 fL (80.0-100.0); MEAN PLATELET VOLUME 10.9 fL (7.4-10.4); MONOCYTES 14.1 % (2-11); NEUTROPHIL ABS# 4.01 10x3/uL (1.78-5.38); NEUTROPHILS 64.3 % (40-80); PLATELET COUNT 240 10x3/uL (130-400); RBC 4.75 10x6/uL (4.20-6.10); RDW 22.2 % (11.5-14.5); WBC 6.2 10x3/uL (4.8-10.8)
[2020-10-20 06:10] LABS: ANION GAP 6.5 mmol/L (8-16); CALCIUM 9.2 mg/dL (8.5-10.1); CARBON DIOXIDE 35.5 mmol/L (21.0-32.0); CREATININE - SERUM 1.2 mg/dL (0.6-1.3); MAGNESIUM - SERUM 2.2 mg/dL (1.8-2.4); PHOSPHOROUS 3.4 mg/dL (2.5-4.9)
[2020-10-20 08:40] VITALS: BP 151/70
--- NOTE | 2020-10-20 10:40 | NUR ---
0720: AROUSES EASILY TO VERBAL STIMULI. NO DISTRESS NOTED. 1000: O2 DECREASED TO 5 LPM.
[2020-10-20 11:44] VITALS: BP 147/68
--- NOTE | 2020-10-20 14:51 | NUR ---
PT ON 5 LPM HF WEANING O2 WILL ADDRESS WALK TEST AT A LATER DATE
[2020-10-20 16:01] VITALS: BP 143/72
--- NOTE | 2020-10-20 17:29 | NUR ---
INCONTINENT LARGE AMT LOOSE GREEN STOOL. CLEANED AND CALMOSEPTINE TO GROIN AND BUTTOCKS
--- NOTE | 2020-10-20 19:30 | NUR ---
PT IN BED, EYES CLOSED, RESP EVEN AND UNLABORED NO DISTRESS NOTED, CL IN REACH, SR UP X 2.
[2020-10-20 20:06] VITALS: BP 138/72
[2020-10-21 01:11] VITALS: BP 167/77
--- NOTE | 2020-10-21 04:05 | NUR ---
I have reviewed this patient and I concur with the Shift Assessment completed by the Licensed Practical Nurse today this shift.
[2020-10-21 05:28] LABS: BASOPHILS 0.4 % (0-2); EOSINOPHILS 1.8 % (0-7); HEMATOCRIT 41.2 % (42.0-54.0); HEMOGLOBIN 11.9 g/dL (13.5-17.5); IMMATURE GRANULOCYTES 1.3 % (0-5); LYMPHOCYTES 21.8 % (15-50); MCH 25.1 pg (26.0-34.0); MCHC 28.9 g/dL (31.0-37.0); MCV 86.7 fL (80.0-100.0); MONOCYTES 16.4 % (2-11); NEUTROPHIL ABS# 3.21 10x3/uL (1.78-5.38); NEUTROPHILS 58.3 % (40-80); PLATELET COUNT 252 10x3/uL (130-400); RBC 4.75 10x6/uL (4.20-6.10); WBC 5.5 10x3/uL (4.8-10.8)
[2020-10-21 05:36] LABS: ANION GAP 10.8 mmol/L (8-16); CALCIUM 9.1 mg/dL (8.5-10.1); CARBON DIOXIDE 33.4 mmol/L (21.0-32.0); CREATININE - SERUM 1.2 mg/dL (0.6-1.3); MAGNESIUM - SERUM 2.1 mg/dL (1.8-2.4); PHOSPHOROUS 4.1 mg/dL (2.5-4.9); POTASSIUM - SERUM 4.2 mmol/L (3.5-5.1)
[2020-10-21 05:47] VITALS: BP 143/73
--- NOTE | 2020-10-21 07:20 | NUR ---
RECIEVE REPORT. RESTING IN BED WITH EYES CLOSED. NO SIGNS OF DISTRESS. CONTINUE PLAN OF CARE AND SAFETY PRECAUTIONS.
[2020-10-21 07:35] VITALS: BP 157/73
[2020-10-21 10:43] VITALS: BP 150/60
[2020-10-21 15:10] VITALS: BP 165/72
--- NOTE | 2020-10-21 15:52 | NUR ---
ALERT AND ORIENTED TO SELF. SLOW TO RESPOND. LT IJ DRESSING CHANGED. TEIXEIRA DRAINING BY GRAVITY. DENIES ANY NEEDS. CONTINUE PLAN OF CARE AND SAFETY PRECAUTIONS.
--- NOTE | 2020-10-21 19:27 | NUR ---
PT UP TO BSC. MODERATE AMOUNT OF LOOSE BROWN STOL NOTED TO KURTIS AND FLOOR. PT CLEANED AND ASSISTED BACK TO BED. FLOOR AND BSC CLEANED. CALL LIGHT WITHIN REACH.
[2020-10-21 20:58] VITALS: BP 149/71
--- NOTE | 2020-10-21 23:18 | NUR ---
ASSESSMENT COMPLETED AT 2000 HRS. VSS. PT ALERT AND ORIENTED TO PERSON,PLACE AND TIME. JEFFRIES. PALPABLE PERIPHERAL PULSES. O2 3LNC. LUNGS DIMINISHED BILAT. ABD SOFT WITH ACTIVE BS NOTED. TEIXEIRA DRAINING YELLOW URINE. BUTTOCKS AND SCROTUM EXCORIATED. HEART TONES S1 S2. PM FSBS 227. 4 UNITS REG INSULIN GIVEN SUB-Q TO UPPER L ARM. PM MEDS GIVEN. PT REFUSES BIPAP AT HS. PT CURRENTLY RESTING WITH EYES CLOSED. RESP EVEN AND REGULAR. SR UP X1, CALL LIGHT WITHIN REACH.
--- NOTE | 2020-10-22 00:20 | NUR ---
PT RESTING WITH EYES CLOSED. RESP EVEN AND REGULAR. SR UP X1,CALL LIGHT WITHIN REACH.
[2020-10-22 01:10] VITALS: BP 136/68
--- NOTE | 2020-10-22 02:25 | NUR ---
PT RESTING WITH EYES CLOSED. RESP EVEN AND REGULAR. SR UP X1,CALL LIGHT WITHIN REACH.
--- NOTE | 2020-10-22 04:20 | NUR ---
PT WATCHING TV. DENIES ANY NEEDS OR DISCOMFORT. CALL LIGHT WITHIN REACH.
[2020-10-22 05:30] VITALS: BP 167/85
--- NOTE | 2020-10-22 06:41 | NUR ---
VSS THROUGHOUT NIGHT. PT DENIED ANY DISCOMFORT. AM FSBS 136. NO COVERAGE NEEDED. WILL CONTINUE TO MONITOR.
[2020-10-22 06:48] LABS: ANION GAP 7.5 mmol/L (8-16); CALCIUM 8.8 mg/dL (8.5-10.1); CARBON DIOXIDE 32.5 mmol/L (21.0-32.0); CREATININE - SERUM 1.2 mg/dL (0.6-1.3)
[2020-10-22 07:11] LABS: BASOPHILS 0.4 % (0-2); EOSINOPHILS 2.3 % (0-7); HEMATOCRIT 40.7 % (42.0-54.0); HEMOGLOBIN 11.7 g/dL (13.5-17.5); IMMATURE GRANULOCYTES 0.8 % (0-5); LYMPHOCYTE ABS# 1.21 10x3/uL (1.32-3.57); LYMPHOCYTES 23.4 % (15-50); MCH 25.1 pg (26.0-34.0); MCHC 28.7 g/dL (31.0-37.0); MCV 87.2 fL (80.0-100.0); MONOCYTES 15.4 % (2-11); NEUTROPHIL ABS# 2.99 10x3/uL (1.78-5.38); NEUTROPHILS 57.7 % (40-80); PLATELET COUNT 252 10x3/uL (130-400); RBC 4.67 10x6/uL (4.20-6.10); RDW 21.8 % (11.5-14.5); WBC 5.2 10x3/uL (4.8-10.8)
[2020-10-22 08:00] VITALS: BP 170/75
[2020-10-22 11:00] VITALS: BP 137/59
--- NOTE | 2020-10-22 12:55 | NUR ---
Nutrition Reassessment/Follow-up: Pt eating breakfast at time of visit this AM. Reports appetite is "fine". Denies N/V, chewing/swallowing difficulties. Reports diarrhea since admit. Awaiting IP rehab. Diet: Cardiac Carb Consistent, Mech Soft PO intake: 49% avg x 6 meals (10/20-10/21) No new wt; last wt: 206.9# (10/05) Labs noted: Glu 131 Meds noted: Humulin, Lasix, KDur, Protonix, zinc sulfate, vit C, vit D, electrolyte protocol -Nutrition needs unchanged; no new wt available. -Encourage PO intake and honor food preferences within diet restrictions. -Need new wt. -RD will follow up within 3 days if pt still admitted.
[2020-10-22 15:00] VITALS: BP 141/60
--- NOTE | 2020-10-22 15:55 | NUR ---
Rehab Note- Acute Inpatient Rehab prescreen order received. The patient has [employer] insurance and will have to have a PreAuth. PreAuth has been started with [facility]. Will follow at this time and await determination for possible inpatient acute rehab stay. Thank you for this referral! Sera De La Rosa RN Clinical Liaison, [facility] Rehab
--- NOTE | 2020-10-22 20:03 | NUR ---
RECIEVED UP IN BED WITH EYES OPEN AND TV ON. ALERT AND ORIENTED. UP TO BEDSIDE COMMODE WITH ASSIST.REMIANS ON 3 LITERS PER HF CANNULA. HAS RT IJ DSG CDI. F/C INTACT WITH CLEAR YELLOW URINE DRAINING TO BEDSIDE DRAINAGE BAG, DENIES ANY NEEDS AT THIS TIME.
[2020-10-22 20:18] VITALS: BP 147/81
[2020-10-23 00:40] VITALS: BP 152/79
--- NOTE | 2020-10-23 00:40 | MORECARE ---
CASE MANAGEMENT DISCHARGE SUMMARY PATIENT: SHELIA HERNANDEZ UNIT: [id number] ADM DATE: 09/27/20 AGE: 65 : 53 SEX: M ROOM/BED: D.4728 AUTHOR: SARINA,DOC PHYSICIAN: REFERRING PHYSICIAN: MOON AYALA MD DATE OF SERVICE: 10/23/20 Discharge Plan Patient Name: SHELIA HERNANDEZ Facility: [facility]:[place] : 1955 Planned Disposition: Home Anticipated Discharge Date: Discharge Date: Expected LOS: Initial Reviewer: [email or web address] Initial Review Date: 09/27/2020 Generated: 10/23/20 1:40 am Comments DCP- Discharge Planning Updated by [email or web address]: Natali Escobar on 10/22/20 11:[address] Late Entry 10/20/20 CM spoke with patient and suppose to be moving in the next two weeks with his roommates. CM spoke to patient about Inpatient Rehab. Patient agrees to rehab GARCIA completed . DCP- Discharge Planning Updated by [id number]: Alanis Joseph on 10/17/20 12:[address] Sp[address] Dr. Ni. He states OK with him for LTACH referral. Dr. Ni spoke with the patient concerning LTACH and he refuses at this time. CM will continue to follow and assist with DC planning/needs. DCP- Discharge Planning Updated by [id number]: Alanis Joseph on 10/12/20 12:[address] CM met with patient to discuss LTACH. I gave him a list of LTACH and he is looking over the list. He is NOT in agreement at this time for a LTACH. I have asked him to review the list and I will speak with him this weekend. CM will continue to follow and assist with discharge planning/needs. DCP- Discharge Planning Updated by [id number]: Mario Wells on 10/06/20 3:[address] Spoke with patient about DC needs. Patient stated that he did not want HHS. CM explained HHS to patient. Patient stated that he is fine with [facility]. Phone call to [facility], spoke with Mavis. Mavis stated that he could possibly SOC on Thursday. Referral Clinicals faxed to [facility]. CM will continue to follow and will assist as needed with dc plans/needs. DCP- Discharge Planning Updated by [id number]: Lety Cash on 10/05/20 12:[address] I have ordered O2, walker and nebulizer from [facility], they should deliver to the hospital when patient is ready to discharge home [facility] will accept the patient if his home bed bug situation has been treated. DCP- Discharge Planning Updated by [email or web address]: Ltey Cash on 10/04/20 1:[address] SENT WALK TEST AND CLINICAL TO [facility] FOR O2 NEEDS DCP- Discharge Planning Updated by [id number]: Lety Cash on 10/03/20 12:[address] [facility] TAKES HIS INSURANCE SO I HAVE SENT THE REFERRAL TO THEM THEY WILL CALL ME BACK IF THEY HAVE ANY ISSUES IMMSERVED AND [facility] ALSO OBTAINED DCP- Discharge Planning Updated by [id number]: Lety Cash on 10/03/20 11:[address] MET WITH PATIENT ABOUT DC PLANS AND REHAB, HE DOES NOT WANT TO GO TO REHAB BUT HE IS AGREEABLE TO HOME HEALTH. GARCIA SIGNED FOR WHOEVER TAKES HIS INSURANCE HE APPEARED SOB IN THE ROOM TALKING WITH ME I HAVE ORDERED A WALK TEST TO SEE IF HE MIGHT NEED HOME O2 DCP- Discharge Planning Updated by [email or web address]: Ester Byrne on 09/28/20 3:[address] Patient plans to DC home and feels this is a safe discharge plan. Patient uses Dr. Luann Sosa as his PCP and [facility] pharmacy #[id number]. Patient is unsure of Arlin Hernandez phone number or contact information. DCPIA - Discharge Planning Initial Assessment Updated by [email or web address]: Ester Byrne on 09/28/20 4:42 pm * Is the patient Alert and Oriented? Yes * How many steps to enter\exit or inside your home? none * PCP Dr. Luann Sosa - [place] * Pharmacy [facility] pharmacy #[id number] * Preadmission Environment Home Alone * ADLs Independent * Other Equipment none * List name and contact numbers for known caregivers / representatives who currently or will assist patient after discharge: Arlin Chacon, number unknown * Verbal permission to speak to the caregivers and representatives has been obtained from the patient. Yes * Can the patient safely return to the preadmission environment? Yes * Has this patient been hospitalized within the prior 30 days at any hospital? No Coverage Notice Reviewer: [id number] Alexi Cash Notice Issued Date-Time: 10/03/2020 12:15 Notice Type: IM Discharge Notice Notice Delivered To: Patient Relationship to Patient: Chief Lock Tender Operator Name: Delivery Method: HAND - Hand Delivered Zunilda Days: Prior Verbal Notification: Recipient Understood Notice: Yes Recipient Signature: Yes Med Rec Note Co-signed by Attending: Coverage Notice Comment: IMM SERVED AND EXPLAINED Reviewer: [id number] Alexi Cash Notice Issued Date-Time: 10/03/2020 12:15 Notice Type: Patient Choice Letter Notice Delivered To: Patient Relationship to Patient: Chief Lock Tender Operator Name: Delivery Method: HAND - Hand Delivered Zunilda Days: Prior Verbal Notification: Recipient Understood Notice: Yes Recipient Signature: Yes Med Rec Note Co-signed by Attending: Coverage Notice Comment: GARCIA FOR HOME HEALTH HE DIDN'T CARE Reviewer: [id number] Alexi Escobar Notice Issued Date-Time: 10/20/2020 19:20 Notice Type: Patient Choice Letter Notice Delivered To: Patient Relationship to Patient: Chief Lock Tender Operator Name: Delivery Method: - Zunilda Days: Prior Verbal Notification: Recipient Understood Notice: Recipient Signature: Med Rec Note Co-signed by Attending: Coverage Notice Comment: Last DP export: 10/17/20 12:57 p Patient Name: SHELIA HERNANDEZ Page [phone] at 0040 All edits/amendments must be made on the electronic document DICTATION DATE: 10/23/2039 SUPERVISOR MODERN LANGUAGES: LIZZIE 10/23/2039 RPT#: [id number] DC DATE: STATUS: ADM IN [facility] [address] [place] [address] END OF REPORT
[2020-10-23 05:09] VITALS: BP 146/73
[2020-10-23 07:10] LABS: ANION GAP 9.2 mmol/L (8-16); CALCIUM 9.1 mg/dL (8.5-10.1); CARBON DIOXIDE 32.7 mmol/L (21.0-32.0); CREATININE - SERUM 1.1 mg/dL (0.6-1.3); POTASSIUM - SERUM 3.9 mmol/L (3.5-5.1)
--- NOTE | 2020-10-23 07:10 | NUR ---
LYING IN BED, AWAKE/ALERT/CONFUSED, T/R SELF AD ANDREI, CONT OF B/B WITH BRPs WITH ASSIST AD ANDREI, DENIES PAIN/OTHER DISCOMFORT AT THIS TIME, CALL LIGHT/PHONE/WATER WITHIN REACH.
[2020-10-23 07:49] LABS: BASOPHILS 0.4 % (0-2); HEMOGLOBIN 11.1 g/dL (13.5-17.5); IMMATURE GRANULOCYTES 0.8 % (0-5); LYMPHOCYTE ABS# 1.13 10x3/uL (1.32-3.57); LYMPHOCYTES 22.2 % (15-50); MCH 24.9 pg (26.0-34.0); MCHC 28.5 g/dL (31.0-37.0); MCV 87.6 fL (80.0-100.0); MEAN PLATELET VOLUME 11.1 fL (7.4-10.4); MONOCYTES 15.9 % (2-11); NEUTROPHIL ABS# 2.93 10x3/uL (1.78-5.38); NEUTROPHILS 57.7 % (40-80); PLATELET COUNT 253 10x3/uL (130-400); RBC 4.45 10x6/uL (4.20-6.10); RDW 21.7 % (11.5-14.5); WBC 5.1 10x3/uL (4.8-10.8)
[2020-10-23 08:00] VITALS: BP 146/71
[2020-10-23 11:00] VITALS: BP 119/61
[2020-10-23 15:00] VITALS: BP 126/66
--- NOTE | 2020-10-23 16:14 | NUR ---
OT NOTE: PT COMPLETED ADL MOB WITH CGA. PT REQUIRED TOTAL A FOR MEDICAL EQUIPMENT MANAGEMENT.PT COMPLETED TOILETING WITH MAX A FOR HYGIENE. PT COMPLETED HAND HYGIENE WITH SBA. PT DID WELL. PT DOES EXHIBIT DECREASED SAFETY AWARNESS. [phone] THANK YOU,MAGDALENE LOYD
--- NOTE | 2020-10-23 19:22 | NUR ---
RECIEVED LAYING IN BED WITH HOB ELEVATED. ALERT AND ORITNED X4. UP WITH ASSIST TO BEDSIDE COMMODE. REMAINS ON 3 LITERS VIA HF CANNULA. RESP EVEN AND UNLABORED. RT IJ IN PLACE WITH DSG CDI. DENIES ANY NEEDS ATTHIS TIME.
[2020-10-23 20:00] VITALS: BP 133/75
[2020-10-24] VITALS: BP 150/69
[2020-10-24 04:00] VITALS: BP 137/83
--- NOTE | 2020-10-24 07:40 | NUR ---
LYING IN BED, AWAKE/ALERT/ORIENTED, T/R SELF AD ANDREI, CONT OF B/B WITH BRPs WITH ASSIST AD ANDREI, DENIES PAIN/OTHER DISCOMFORT AT THIS TIME, CALL LIGHT/PHONE/WATER WITHIN REACH, NO S/S OF ACUTE DISTRESS OBSERVED.
[2020-10-24 08:09] VITALS: BP 137/77
[2020-10-24 11:58] VITALS: BP 137/87
--- NOTE | 2020-10-24 15:17 | NUR ---
Rehab Note- Spoke with Abigail this AM checking update on pending preauth for an acute inpatient stay and still pending medical review at that time. Received call from Ruthann @[phone] and stated that the case is pending review by their medical biller at this time. Will continue to await determination at this time. Thank you for this referral! Sera De La Rosa RN Clinical Liaison, [facility] Rehab
[2020-10-24 15:46] VITALS: BP 141/75
--- NOTE | 2020-10-24 16:52 | NUR ---
OT NOTE: PT COMPLETED SUPINE TO SIT WITH SBA. PT COMPLETED SIT TO STAND WITH SBA-CGA. PT COMPLETED SIDE STEPS WITH CGA. PT COMPLETED FACE AND HAND HYGIENE WITH SETUP. [id number] THANK YOU,MAGDALENE LOYD
--- NOTE | 2020-10-24 19:30 | NUR ---
PT IN BED, EYES CLOSED, RESP EVEN AND UNLABORED, NO DISTRESS NOTED, CL IN REACH, SR UP X 2.
[2020-10-24 20:00] VITALS: BP 147/80
[2020-10-25] VITALS: BP 153/78
[2020-10-25 04:00] VITALS: BP 132/88
--- NOTE | 2020-10-25 05:32 | NUR ---
I have reviewed this patient and I concur with the Shift Assessment completed by the Licensed Practical Nurse today this shift.
--- NOTE | 2020-10-25 07:40 | NUR ---
LYING IN BED, AWAKE/ALERT/ORIENTED, T/R SELF AD ANDREI, FC PATENT AND DRAINING CONCENTRATED URINE TO CDB IN AMPLE AMT, CATH CARE PROVIDED WITH DAILY BATH AND PRN, CONT OF BOWEL WITH BRPs PER SELF AD ADNREI, DENIES PAIN/OTHER DISCOMFORT AT THIS TIME, CALL LIGHT/PHONE/WATER WITHIN REACH, NO S/S OF ACUTE DISTRESS OBSERVED.
[2020-10-25 08:23] VITALS: BP 152/85
[2020-10-25] MEDS ORDERED: FUROSEMIDE20 MG PO (11:02)
[2020-10-25] MEDS ORDERED: K-TAB10 MEQ PO (11:03)
--- NOTE | 2020-10-25 11:18 | NUR ---
Nutrition Follow-up: Overall fair PO intake. 50% of meals yesterday per record. Noted plans to d/c to rehab. Diet: Cardiac Carb Consistent, Mech Soft PO intake: 59% avg x 11 meals Wt: 206.9# (2/) Labs noted: Glu 122 Meds noted: Lasix, KDur, Protonix, Humulin, zinc sulfate, vit C, vit D, electrolyte protocol -Encourage PO intake and honor food preferences within diet restrictions. -Need new wt. -RD will follow up within 4-5 days if pt still admitted.
--- NOTE | 2020-10-25 14:38 | MORECARE ---
CASE MANAGEMENT DISCHARGE SUMMARY PATIENT: SHELIA HERNANDEZ UNIT: [id number] ADM DATE: 09/27/20 AGE: 65 : 53 SEX: M ROOM/BED: D.2114 AUTHOR: SARINA,DOC PHYSICIAN: REFERRING PHYSICIAN: MOON AYALA MD DATE OF SERVICE: 10/25/20 Discharge Plan Patient Name: SHELIA HERNANDEZ Facility: [facility]:[place] : 1955 Planned Disposition: Home Anticipated Discharge Date: Discharge Date: Expected LOS: Initial Reviewer: [id number] Initial Review Date: 09/27/2020 Generated: 10/25/20 3:38 pm Comments DCP- Discharge Planning Updated by [email or web address]: Natali Escobar on 10/25/20 1:[address] CM SPOKE WITH PATIENT HE STILL AGREES TO GO TO REHAB AND D/C IMM SIGNED . DENIES ANY OTHER D/C NEEDS. DCP- Discharge Planning Updated by [email or web address]: Natali Escobar on 10/22/20 11:[address] Late Entry 10/20/20 CM spoke with patient and suppose to be moving in the next two weeks with his roommates. CM spoke to patient about Inpatient Rehab. Patient agrees to rehab GARCIA completed . DCP- Discharge Planning Updated by [email or web address]: Alanis Joseph on 10/17/20 12:[address]. Ni. He states OK with him for LTACH referral. Dr. Ni spoke with the patient concerning LTACH and he refuses at this time. CM will continue to follow and assist with DC planning/needs. DCP- Discharge Planning Updated by [email or web address]: Alanis Joseph on 10/12/20 12:[address] CM met with patient to discuss LTACH. I gave him a list of LTACH and he is looking over the list. He is NOT in agreement at this time for a LTACH. I have asked him to review the list and I will speak with him this weekend. CM will continue to follow and assist with discharge planning/needs. DCP- Discharge Planning Updated by [id number]: Mario Wells on 10/06/20 3:[address] Spoke with patient about DC needs. Patient stated that he did not want HHS. CM explained HHS to patient. Patient stated that he is fine with [facility]. Phone call to [facility], spoke with Mavis. Mavis stated that he could possibly SOC on Thursday. Referral Clinicals faxed to [facility]. CM will continue to follow and will assist as needed with dc plans/needs. DCP- Discharge Planning Updated by [email or web address]: Lety Cash on 10/05/20 12:[address] I have ordered O2, walker and nebulizer from [facility], they should deliver to the hospital when patient is ready to discharge home [facility] will accept the patient if his home bed bug situation has been treated. DCP- Discharge Planning Updated by [email or web address]: Lety Cash on 10/04/20 1:[address] SENT WALK TEST AND CLINICAL TO [facility] FOR O2 NEEDS DCP- Discharge Planning Updated by [id number]: Lety Cash on 10/03/20 12:[address] [facility] TAKES HIS INSURANCE SO I HAVE SENT THE REFERRAL TO THEM THEY WILL CALL ME BACK IF THEY HAVE ANY ISSUES IMMSERVED AND [facility] ALSO OBTAINED DCP- Discharge Planning Updated by [email or web address]: Lety Cash on 10/03/20 11:[address] MET WITH PATIENT ABOUT DC PLANS AND REHAB, HE DOES NOT WANT TO GO TO REHAB BUT HE IS AGREEABLE TO HOME HEALTH. GARCIA SIGNED FOR WHOEVER TAKES HIS INSURANCE HE APPEARED SOB IN THE ROOM TALKING WITH ME I HAVE ORDERED A WALK TEST TO SEE IF HE MIGHT NEED HOME O2 DCP- Discharge Planning Updated by [email or web address]: Ester yBrne on 09/28/20 3:[address] Patient plans to DC home and feels this is a safe discharge plan. Patient uses Dr. Luann Sosa as his PCP and [facility] pharmacy #[id number]. Patient is unsure of Arlin Hernandez phone number or contact information. DCPIA - Discharge Planning Initial Assessment Updated by [email or web address]: Ester Byrne on 09/28/20 4:42 pm * Is the patient Alert and Oriented? Yes * How many steps to enter\exit or inside your home? none * PCP Dr. Luann Sosa - [facility] * Pharmacy [facility] pharmacy #[id number] * Preadmission Environment Home Alone * ADLs Independent * Other Equipment none * List name and contact numbers for known caregivers / representatives who currently or will assist patient after discharge: Arlin Chacon, number unknown * Verbal permission to speak to the caregivers and representatives has been obtained from the patient. Yes * Can the patient safely return to the preadmission environment? Yes * Has this patient been hospitalized within the prior 30 days at any hospital? No Coverage Notice Reviewer: [id number] Alexi Cash Notice Issued Date-Time: 10/03/2020 12:15 Notice Type: IM Discharge Notice Notice Delivered To: Patient Relationship to Patient: Correctional Classification Counselor Name: Delivery Method: HAND - Hand Delivered Zunilda Days: Prior Verbal Notification: Recipient Understood Notice: Yes Recipient Signature: Yes Med Rec Note Co-signed by Attending: Coverage Notice Comment: IMM SERVED AND EXPLAINED Reviewer: [id number] Alexi Cash Notice Issued Date-Time: 10/03/2020 12:15 Notice Type: Patient Choice Letter Notice Delivered To: Patient Relationship to Patient: Correctional Classification Counselor Name: Delivery Method: HAND - Hand Delivered Zunilda Days: Prior Verbal Notification: Recipient Understood Notice: Yes Recipient Signature: Yes Med Rec Note Co-signed by Attending: Coverage Notice Comment: GARCIA FOR HOME HEALTH HE DIDN'T CARE Reviewer: [id number] Alexi Escobar Notice Issued Date-Time: 10/20/2020 19:20 Notice Type: Patient Choice Letter Notice Delivered To: Patient Relationship to Patient: Correctional Classification Counselor Name: Delivery Method: - Zunilda Days: Prior Verbal Notification: Recipient Understood Notice: Recipient Signature: Med Rec Note Co-signed by Attending: Coverage Notice Comment: Last DP export: 10/22/20 11:40 p Patient Name: SHELIA HERNANDEZ Page [phone] at 1438 All edits/amendments must be made on the electronic document DICTATION DATE: 10/25/20 1438 ACCOUNT CLERK: LIZZIE 10/25/20 1438 RPT#: [id number] DC DATE: STATUS: ADM IN [facility] [address] [place] [address] END OF REPORT
--- NOTE | 2020-10-25 15:00 | NUR ---
DISCONTINUED CVL USING ASCEPTIC TECHNIQUE WITH CATH INTACT, HELD PRESSURE ON WOUND FOR 15 MIN FOLLOWED BY PT REMAINING LYING DOWN FOR 15 MIN MORE, NO S/S OF ACUTE DISTRESS OBSERVED.
--- NOTE | 2020-10-25 16:00 | NUR ---
DISCONTINUED IV CATH USING ASCEPTIC TECHNIQUE AFTER DONNING GLOVES AND REMOVING 8 ML STERILE WATER FROM BULB WITH BULB INTACT WHEN REMOVED, LAILA WELL
--- NOTE | 2020-10-25 16:21 | NUR ---
OT NOTE: PT PERFORMED WELL TODAY. PT WAS COMPLETING HIS BREAKFAST WITHOUT DIFFICULTY WHILE SITTING UP ON EOB. AMB TO BATHROOM WITH MIN ASSIST; PT ATTEMPTED TOILET HYGIENE BUT REQUESTED HELP TO COMPLETE. MOD ASSIST FOR LE DRESSING. MIN ASSIST WITH DONNING GOWN. AMB IN ROOM WITH MIN ASSIST X 2; ABLE TO STAND AT SINK TO PERFORM GROOMING TASKS WITH VERBAL CUES FOR EACH TASK. TOLERATED STANDING FOR APPROX 4 MIN. MARY CASTILLO, OTR/L [phone]
--- NOTE | 2020-10-25 17:15 | NUR ---
CALLED REPORT TO EDUAR DACOSTA ON REHAB UNIT, PT TO TRANSFER AT LATER TIME.
--- NOTE | 2020-10-26 11:17 | MORECARE ---
CASE MANAGEMENT DISCHARGE SUMMARY PATIENT: SHELIA HERNANDEZ UNIT: [id number] ADM DATE: 09/27/20 AGE: 65 : 53 SEX: M ROOM/BED: D.2114 AUTHOR: SARINA,DOC PHYSICIAN: REFERRING PHYSICIAN: MOON AYALA MD DATE OF SERVICE: 10/26/20 Discharge Plan Patient Name: SHELIA HERNANDEZ Facility: [facility]:[place] : 1955 Planned Disposition: Home Anticipated Discharge Date: Discharge Date: 10/25/2020 Expected LOS: Initial Reviewer: [email or web address] Initial Review Date: 09/27/2020 Generated: 10/26/20 12:16 pm Comments DCP- Discharge Planning Updated by [id number]: Natali Escobar on 10/25/20 1:[address] CM SPOKE WITH PATIENT HE STILL AGREES TO GO TO REHAB AND D/C IMM SIGNED . DENIES ANY OTHER D/C NEEDS. DCP- Discharge Planning Updated by [email or web address]: Natali Escobar on 10/22/20 11:[address] Late Entry 10/20/20 CM spoke with patient and suppose to be moving in the next two weeks with his roommates. CM spoke to patient about Inpatient Rehab. Patient agrees to rehab GARCIA completed . DCP- Discharge Planning Updated by [email or web address]: Alanis Joseph on 10/17/20 12:[address] Sp[address] Dr. Ni. He states OK with him for LTACH referral. Dr. Ni spoke with the patient concerning LTACH and he refuses at this time. CM will continue to follow and assist with DC planning/needs. DCP- Discharge Planning Updated by [id number]: Alanis Joseph on 10/12/20 12:[address] CM met with patient to discuss LTACH. I gave him a list of LTACH and he is looking over the list. He is NOT in agreement at this time for a LTACH. I have asked him to review the list and I will speak with him this weekend. CM will continue to follow and assist with discharge planning/needs. DCP- Discharge Planning Updated by [id number]: Mario Wells on 10/06/20 3:[address] Spoke with patient about DC needs. Patient stated that he did not want HHS. CM explained HHS to patient. Patient stated that he is fine with [facility]. Phone call to [facility], spoke with Mavis. Mavis stated that he could possibly SOC on Thursday. Referral Clinicals faxed to [facility]. CM will continue to follow and will assist as needed with dc plans/needs. DCP- Discharge Planning Updated by [email or web address]: Lety Cash on 10/05/20 12:[address] I have ordered O2, walker and nebulizer from [facility], they should deliver to the hospital when patient is ready to discharge home [facility] will accept the patient if his home bed bug situation has been treated. DCP- Discharge Planning Updated by [id number]: Lety Cash on 10/04/20 1:[address] SENT WALK TEST AND CLINICAL TO [facility] FOR O2 NEEDS DCP- Discharge Planning Updated by [email or web address]: Lety Cash on 10/03/20 12:[address] [facility] TAKES HIS INSURANCE SO I HAVE SENT THE REFERRAL TO THEM THEY WILL CALL ME BACK IF THEY HAVE ANY ISSUES IMMSERVED AND [facility] ALSO OBTAINED DCP- Discharge Planning Updated by [id number]: Lety Cash on 10/03/20 11:[address] MET WITH PATIENT ABOUT DC PLANS AND REHAB, HE DOES NOT WANT TO GO TO REHAB BUT HE IS AGREEABLE TO HOME HEALTH. GARCIA SIGNED FOR WHOEVER TAKES HIS INSURANCE HE APPEARED SOB IN THE ROOM TALKING WITH ME I HAVE ORDERED A WALK TEST TO SEE IF HE MIGHT NEED HOME O2 DCP- Discharge Planning Updated by [id number]: Ester Byrne on 09/28/20 3:[address] Patient plans to DC home and feels this is a safe discharge plan. Patient uses Dr. Luann Sosa as his PCP and [facility] pharmacy #[id number]. Patient is unsure of Arlin Hernandez phone number or contact information. DCPIA - Discharge Planning Initial Assessment Updated by [id number]: Ester Byrne on 09/28/20 4:42 pm * Is the patient Alert and Oriented? Yes * How many steps to enter\exit or inside your home? none * PCP Dr. Luann Sosa - [facility] * Pharmacy [facility] pharmacy #[id number] * Preadmission Environment Home Alone * ADLs Independent * Other Equipment none * List name and contact numbers for known caregivers / representatives who currently or will assist patient after discharge: Arlin Chacon, number unknown * Verbal permission to speak to the caregivers and representatives has been obtained from the patient. Yes * Can the patient safely return to the preadmission environment? Yes * Has this patient been hospitalized within the prior 30 days at any hospital? No Coverage Notice Reviewer: [id number] Alexi Cash Notice Issued Date-Time: 10/03/2020 12:15 Notice Type: IM Discharge Notice Notice Delivered To: Patient Relationship to Patient: Electrical Machinist Name: Delivery Method: HAND - Hand Delivered Zunilda Days: Prior Verbal Notification: Recipient Understood Notice: Yes Recipient Signature: Yes Med Rec Note Co-signed by Attending: Coverage Notice Comment: IMM SERVED AND EXPLAINED Reviewer: [id number] Alexi Cash Notice Issued Date-Time: 10/03/2020 12:15 Notice Type: Patient Choice Letter Notice Delivered To: Patient Relationship to Patient: Electrical Machinist Name: Delivery Method: HAND - Hand Delivered Zunilda Days: Prior Verbal Notification: Recipient Understood Notice: Yes Recipient Signature: Yes Med Rec Note Co-signed by Attending: Coverage Notice Comment: GARCIA FOR HOME HEALTH HE DIDN'T CARE Reviewer: [id number] Alexi Escobar Notice Issued Date-Time: 10/20/2020 19:20 Notice Type: Patient Choice Letter Notice Delivered To: Patient Relationship to Patient: Electrical Machinist Name: Delivery Method: - Zunilda Days: Prior Verbal Notification: Recipient Understood Notice: Recipient Signature: Med Rec Note Co-signed by Attending: Coverage Notice Comment: Last DP export: 10/25/20 1:38 p Patient Name: SHELIA HERNANDEZ Page [phone] at 1117 All edits/amendments must be made on the electronic document DICTATION DATE: 10/26/20 1117 DRAPERY SEAMSTRESS: LIZZIE 10/26/20 1117 RPT#: [id number] DC DATE:10/25/20 STATUS: DIS IN [facility] [address] [place] [address] END OF REPORT
== END 2020-10-25 18:00 | DRG 811 ==
LOC: D.ER 17:50 → D.MS 20:52 → D.ICU 20:52 → D.EDHOLD 20:52 → D.ICU 22:37 → D.MS 09-30 18:22 → D.M2 10-09 12:16
PROVIDERS: Emergency Medicine; Family Medicine; Internal Medicine; Internal Medicine Pulmonary Disease; ADMIT Family Medicine; ATTEND Family Medicine
PROC: 05HM33Z Insertion of Infusion Device into Right Internal Jugular Vein, Percutaneous Approach (ICD-10-PCS; principal; 2020-10-09)
DX: D50.8 Other iron deficiency anemias (principal); J18.9 Pneumonia, unspecified organism; J96.01 Acute respiratory failure with hypoxia; J96.02 Acute respiratory failure with hypercapnia; N17.9 Acute kidney failure, unspecified; E87.2 Acidosis; F17.203 Nicotine dependence unspecified, with withdrawal; J44.1 Chronic obstructive pulmonary disease with (acute) exacerbation; E11.65 Type 2 diabetes mellitus with hyperglycemia; E83.41 Hypermagnesemia; I10 Essential (primary) hypertension; E66.9 Obesity, unspecified; Z68.34 Body mass index [BMI] 34.0-34.9, adult

== ENCOUNTER 2020-10-25 17:43 | Inpatient (IN) | payer MEDICARE ==
[~2020-10-25] VITALS: Ht 165.1 cm; Wt 102.1 kg
[~2020-10-25 17:43] MED LIST: BUPROPION HCL150 M1 PO; FUROSEMIDE20 MG PO; GLUCOPHAGE XR750 MG PO; K-TAB10 MEQ PO; LOSARTAN-HCTZ1 EAC1 PO; PRAVACHOL40 MG PO; TOPROL XL25 MG PO
[2020-10-25 19:32] VITALS: BP 140/82; BMI 37.5
[2020-10-25 19:57] VITALS: BP 140/82
--- NOTE | 2020-10-25 20:30 | NUR ---
ADMIT FOR PHYSICAL REHAB AND SERVICES OF DR ORTIZ. AWAKE AND ALERT. RESPIRAITONS UNLABORED. O2/3L ON PER NASAL CANNULA. REMINDED TO LET NURSE KNOW IF/WHEN HE VOIDS. SEE ADMISSION ASSESSMENT.
--- NOTE | 2020-10-26 02:05 | NUR ---
SLEEPING WITH NO DISTRESS NOTED.
--- NOTE | 2020-10-26 06:09 | NUR ---
QUIET HOURS. NO ACUTE CHANGES IN CONDITION THIS SHIFT. ASSISTED TO BATHROOM AND BACK TO BED. IMPULSIVE TO STAND UP WITHOUT WAITING FOR ASSISTANCE. EDUCATION DONE ON FALL PREVENTION.
[2020-10-26 06:18] LABS: BASOPHILS 0.3 % (0-2); EOSINOPHILS 2.1 % (0-7); HEMATOCRIT 39.1 % (42.0-54.0); HEMOGLOBIN 11.4 g/dL (13.5-17.5); IMMATURE GRANULOCYTES 1.3 % (0-5); LYMPHOCYTE ABS# 1.38 10x3/uL (1.32-3.57); LYMPHOCYTES 22.8 % (15-50); MCH 24.8 pg (26.0-34.0); MCHC 29.2 g/dL (31.0-37.0); MCV 85.2 fL (80.0-100.0); MEAN PLATELET VOLUME 10.8 fL (7.4-10.4); MONOCYTES 12.6 % (2-11); NEUTROPHIL ABS# 3.68 10x3/uL (1.78-5.38); NEUTROPHILS 60.9 % (40-80); PLATELET COUNT 279 10x3/uL (130-400); RBC 4.59 10x6/uL (4.20-6.10); RDW 21.1 % (11.5-14.5); WBC 6.1 10x3/uL (4.8-10.8)
[2020-10-26 06:30] LABS: ANION GAP 11.2 mmol/L (8-16); CALCIUM 9.2 mg/dL (8.5-10.1); CARBON DIOXIDE 29.6 mmol/L (21.0-32.0); CREATININE - SERUM 1.3 mg/dL (0.6-1.3); POTASSIUM - SERUM 3.8 mmol/L (3.5-5.1)
[2020-10-26 08:03] VITALS: BP 117/68
--- NOTE | 2020-10-26 09:48 | NUR ---
PATIENT ADMITTS TO REHAB FROM ACUTE FLOOR. HIS PCP IS DR. CHARLEEN MANZANARES. THERE IS NO DME AT HOME. HE HAS HOME HEALTH WITH [facility]. DC PLANS ARE FOR PATIENT TO RETURN TO HIS HOME. WILL CONTINUE TO FOLLOW WITH PATIENT.
--- NOTE | 2020-10-26 12:44 | NUR ---
SITTING UP ON SIDE OF BED FINISHING LUNCH. SPEECH HAS A SLIGH DELAY BUT WORDS ARE EASY TO UNDERSTAND. IS COOPERATIVE WITH REQUESTS. DENIES PAIN. REMAINS IN ISOLATION FOR PUI COVID. BED AND CHAIR ALARM IN PLACE. CALL LIGHT IN REACH
[2020-10-26 15:34] VITALS: Ht 165.1 cm; Wt 102.1 kg
--- NOTE | 2020-10-26 19:25 | NUR ---
RECEIVED PT LYING IN BED EYES CLOSED RESTING. EASILY AROUSED WITH STIMULI. DENIES ANY NEEDS OR PAIN. NO DISTRESS NOTED. CALL LIGHT AND WATER WITHIN REACH. FALL PRECAUTIONS IN PLACE. CPOC
[2020-10-26 21:02] VITALS: BP 129/76
--- NOTE | 2020-10-27 02:08 | NUR ---
PT LYING IN BED EYES CLOSED RESTING. RR EVEN AND UNLABORED. CALL LIGHT WITHIN REACH. CPOC
--- NOTE | 2020-10-27 03:02 | NUR ---
HEARD ALARM SOUNDING WENT TO CHECK ON PT FOUND PT UP WALKING TO RESTROOM. INSTRUCTED PT TO CALL WHEN NEEDING ASSISTANCE TO RESTROOM, PT STATES "I DON'T NEED ASSISTANCE TO GO TO RESTROOM, EDUCATED PT ON SAFETY TO PREVENT FALLS. PT VERBALIZED UNDERSTANDING. PT BACK IN BED. SOLO ALARM ON. CALL LIGHT WITHIN REACH. CPOC
--- NOTE | 2020-10-27 04:48 | NUR ---
PT LYING IN BED ON RIGHT SIDE EYES CLOSED RESTING. NO DISTRESS NOTED. CALL LIGHT AND WATER WITHIN REACH. FALL PRECAUTIONS IN PLACE. CPOC
[2020-10-27 08:00] VITALS: BP 132/86
--- NOTE | 2020-10-27 08:30 | NUR ---
AM MEDS GIVEN. HE HAS A NICOTINE PATCH TO HIS RIGHT SHOULDER DATED 10/25 AND 1 TO HIS LEFT ARM DATED 10/24. REMOVED AND DISCARDED BOTH OF THEM. OFFERED TO CALL THE MD TO GET AN ORDER FOR THE NICOTINE PATCH AND HE DECLINED. HE HAS A BED ALARM ON BUT GETS UP VERY QUICKLY AND GOES TO THE BATHROOM WITHOUT HITTING HIS CALL LIGHT. EDUCATED HIM ON THE IMPORTANCE OF CALLING BEFORE HE GETS UP AND THE RISK OF HIM FALLING WHEN HE DOESNT CALL FOR HELP. HE VERBALIZED UNDERSTANDING. BED IS LOW, ALARM ON AND CALL LIGHT WITHIN REACH.
--- NOTE | 2020-10-27 18:30 | NUR ---
SPOKE TO PTS UNCLE (FORGOT HIS NAME BUT HE DID HAVE HIS SECURITY CODE FOR INFORMATION) AND ALSO SPOKE TO PTS DAUGHTER ELEAZAR KELLY (PHONE# [phone]). BOTH OF THEM ARE CONCERNED WITH PTS WELFARE AT DISCHARGE. THE UNCLE REPORTS CALLING APS TO INVESTIGATE THE PTS LIVING CONDITION. HE SAID THE PT IS AN ALCOHOLIC WHO HAD RECENTLY HAD TO DECREASE INTAKE DUE TO LACK OF FUNDS. HE STATES THAT THE PT HAS MULTIPLE ROOMMATES WHO ARE ALSO ALCOHOLICS AND HE WAS CONCERNED WELL THE PT DAUGHTER ABOUT BED BUGS, PT NOT EATING OR TAKING CARE OF HIMSELF PROPERLY. THEY WOULD LIKE FOR A SAND MILL OPERATOR FACING SAND/CASE MANAGEMENT TO ASSIST IN FINIDNG PT ALTERNATE HOUSING AT DISCHARGE WELL THE DAUGHTER IS WANTING INFORMATION ON HOW TO OBTAIN DENTURES AND HEARING AIDS FOR HER DAD. LET HER KNOW THAT CASE MANAGEMENT WILL BE BACK ON THURSDAY AND I WILL PASS THIS INFORMATION ON TO THE ONCOMING NURSE, EDUAR SILVA.
--- NOTE | 2020-10-27 19:10 | NUR ---
RECEIVED PT SITTING UP ON SIDE OF BED VISITING WITH DAUGHTER. ALERT AND ORIENTED X2. REORIENTED TO TIME AND PLACE. PT DAUGHTER VOICED CONCERNS ABOUT PT LIVING SITUATION/CONDITIONS. DAUGHTER STATES APS WAS CALLED PRIOR TO PT BEING ADMITTED TO HOSPITAL. PT DAUGHTER ALSO REQUESTED A WHIPPER BEATER FOLLOW HER FATHER REGARDING THIS. KIMMY'S NUMBER WAS GIVEN TO DAUGHTER. NO OXYGEN OR IV NOTED. VS STABLE. CALL LIGHT AND WATER WITHIN REACH. FALL PRECAUTIONS IN PLACE. CPOC
[2020-10-27 21:27] VITALS: BP 147/72
--- NOTE | 2020-10-27 23:19 | NUR ---
PT LYING IN BED ON LEFT SIDE EYES CLOSED RESTING. RR EVEN AND UNLABORED. CALL LIGHT WITHIN REACH. SOLO ALARM ON. CPOC
--- NOTE | 2020-10-28 01:44 | NUR ---
PT LYING IN BED ON RIGHT SIDE EYES CLOSED RESTING. NO DISTRESS NOTED. CALL LIGHT WITHIN REACH. CPOC
--- NOTE | 2020-10-28 04:08 | NUR ---
PT LYING IN BED ON RIGHT SIDE EYES CLOSED RESTING. RR EVEN AND UNLABORED. CALL LIGHT AND PERSONAL ITEMS WITHIN REACH. SOLO ALARM ON. CPOC
[2020-10-28 09:35] VITALS: BP 142/84
--- NOTE | 2020-10-28 10:00 | NUR ---
COMPLETE LINEN CHANGE DONE AND ASSISTED PT WITH SHOWER. HE IS UNSTEADY WHILE AMBULATING. HE SAT IN THE SHOWER CHAIR FOR MOST OF HIS SHOWER. AFTER THE SHOWER I ASSISTED HIM BACK TO BED. HE DENIES PAIN OR NEEDS. THIS MORNING, HE DID GET UP TO GO TO THE BATHROOM WITHOUT CALLING. HE IS FORGETFUL AND CONFUSED AT TIMES. HIS BED ALARM IS ON. EDUCATED HIM ON THE IMPORTANCE OF CALLING FOR HELP BEFORE GETTING OUT OF BED. HIS BED IS LOW AND CALL LIGHT WITHIN REACH.
--- NOTE | 2020-10-28 13:06 | NUR ---
PT C/O DIARRHEA. HE STATES HE HAS IT ALL THE TIME AND WANTS TO KNOW IF I CAN GIVE HIM MEDICATION TO STOP IT SO HE WONT HAVE TO KEEP RUNNING TO THE BATHROOM. IMMODIUM ORDERED. PT HAD NEGATIVE CDIFF TEST ON 10/01/20. HE DENIES NAUSEA OR VOMITTING. HE REPORTS A GOOD APPETITE. HE ATE 100% OF HIS BREAKFAST HE WAS WORKING ON LUNCH WHEN THE DIARRHEA STARTED. HE DENIES OTHER SYMPTOMS OR PAIN. HE STATES HE HAD DIARRHEA 2X YESTERDAY EVENING AND 3X SO FAR TODAY. WILL CONTINUE TO MONITOR FOR EFFECTIVENESS OF IMMODIUM. HIS BED IS LOW, CALL LIGHT WITHIN REACH AND SOLO ALARM ON.
--- NOTE | 2020-10-28 18:47 | NUR ---
RECEIVED PT SITTING UP IN RECLINER IN ROOM. ALERT AND ORIENTED X4. CONTINUES ON O2/3L HUMIDIFIED VIA NC. C/O 11/07 LEFT SHOULDER DISCOMFORT. LAST PAIN MEDICATION ADMINISTERED 1630 PER EMAR. LEFT SHOULDER SECURED IN SLING APPROPRIATELY. ADJUSTED SHOULDER STRAP PER PT REQUEST. NO DISTRESS NOTED. NO OTHER NEEDS VOICED. CALL LIGHT AND WATER WITHIN REACH. FALL PRECAUTIONS IN PLACE. CPOC
--- NOTE | 2020-10-28 18:53 | NUR ---
RECIEVED PT SITTING UP IN BED VISITING WITH BROTHER. PT IS ALERT AND ORIENTED X3. REORIENTED TO SITUATION. C/O DIARRHEA TODAY, PT STATES HE HAS DIARRHEA PERIODICALLY AND TAKES SOMETHING AT HOME COULD NOT REMEMBER WHAT IT WAS. IMMODIUM WAS GIVEN BY EDUAR PEDERSEN @ 1800 APPROXIMATELY. WILL CONTINUE TO MONITOR THROUGHOUT SHIFT. NO DISTRESS NOTED. NO OTHER NEEDS OR PAIN VOICED. VISITOR IS IN MASK COMPLIANCE. CALL LIGHT AND WATER WITHIN REACH. FALL PRECAUTIONS IN PLACE. CPOC
[2020-10-28 20:16] VITALS: BP 137/80
--- NOTE | 2020-10-28 23:21 | NUR ---
PT LYING IN BED ON RIGHT SIDE EYES CLOSED RESTING. RR EVEN AND UNLABORED. CALL LIGHT WITHIN REACH. SOLO ALARM ON. CPOC
--- NOTE | 2020-10-29 03:04 | NUR ---
PT LYING IN BED SUPINE EYES CLOSED RESTING. RR EVEN AND UNLABORED. NO DISTRESS NOTED. CALL LIGHT WITHIN REACH
--- NOTE | 2020-10-29 05:02 | NUR ---
PT LYING IN BED ON RIGHT SIDE EYES CLOSED RESTING. EASILY AROUSED WITH STIMULI. EARLY AM MEDS ADMININSTERED WITHOUT DIFFICULTY. DENIES ANY NEEDS OR PAIN. TOILETING OFFERED PT DENIES NEED. NO DISTRESS NOTED. CALL LIGHT AND WATER WITHIN REACH. SOLO ALARM ON. CPOC
[2020-10-29 07:46] VITALS: BP 149/78
--- NOTE | 2020-10-29 08:00 | NUR ---
SHIFT ASSMT COMPLETED.SITTING UP ON SIDE OF BED EATING BREAKFAST.CL IN REACH.
--- NOTE | 2020-10-29 12:00 | NUR ---
SITTING UP IN CHAIR EATING LUNCH.
[2020-10-29 12:22] LABS: BASOPHILS 0.1 % (0-2); EOSINOPHILS 1.7 % (0-7); HEMATOCRIT 40.8 % (42.0-54.0); HEMOGLOBIN 12.2 g/dL (13.5-17.5); MCH 25.7 pg (26.0-34.0); MCHC 29.9 g/dL (31.0-37.0); MCV 85.9 fL (80.0-100.0); MEAN PLATELET VOLUME 10.2 fL (7.4-10.4); MONOCYTES 11.2 % (2-11); PLATELET COUNT 258 10x3/uL (130-400); RBC 4.75 10x6/uL (4.20-6.10); RDW 20.1 % (11.5-14.5); WBC 6.9 10x3/uL (4.8-10.8)
[2020-10-29 12:33] LABS: ANION GAP 13.9 mmol/L (8-16); CALCIUM 9.5 mg/dL (8.5-10.1); CARBON DIOXIDE 27.1 mmol/L (21.0-32.0); CREATININE - SERUM 1.4 mg/dL (0.6-1.3)
--- NOTE | 2020-10-29 19:19 | NUR ---
AWAKE AND ALERT. RESTING IN BED WITH RESPIRAITONS UNLABORED. NO DISTRESS NOTED. CALL LIGHT IN REACH.
[2020-10-29 20:05] VITALS: BP 134/67
--- NOTE | 2020-10-30 01:22 | NUR ---
RESTING IN BED WITH RESPIRATIONS UNLABORED. NO DISTRESS NOTED.
--- NOTE | 2020-10-30 05:22 | NUR ---
QUIET HOURS. NO ACUTE CHANGES IN CONDITION THIS SHIFT. RESTING IN BED WITH NO DISTRESS NOTED.
[2020-10-30 08:00] VITALS: BP 128/70
--- NOTE | 2020-10-30 08:00 | NUR ---
SHIFT ASSMT COMPLETED.BREAKFAST GIVEN.CL IN REACH.ENCOURAGED TO USE CALL LIGHT WHEN GETTING UP OOB.VERY IMPULSIVE AND SLIGHTLY SLOW TO RESPOND.
--- NOTE | 2020-10-30 14:41 | NUR ---
Nutrition Re-Assessment Diet: Diabetic PO intake: 75-100% x last 4 meals, patient was asleep at time of RD visit Last BM: 10/30/20 Wt: 225# (10/26/20) Meds noted: lasix, micro-k, metformin Labs noted: BUN 20(H), Cr 1.4(H), Glu 147(H) Estimated nutrition needs and nutrition diagnosis remain unchanged at this time. Progressing towards nutrition goals. Recommendations/Interventions: -Recommend continue current diet. -Will continue to honor food preferences within diet restrictions. -RD will continue to monitor PO intake and wt trend. -RD will follow-up within 7 days.
--- NOTE | 2020-10-30 16:00 | NUR ---
SITTING UP ON SIDE OF BED
[2020-10-30 19:20] VITALS: BP 163/70
--- NOTE | 2020-10-30 19:40 | NUR ---
AWAKE AND ALERT. RESTING IN BED WITH RESPRIATIONS UNLABORED. NO DISTRESS NOTED. CALL LIGHT IN REACH.
--- NOTE | 2020-10-31 04:58 | NUR ---
QUIET HOURS. NO ACUTE CHANGES IN CONDITION THIS SHIFT. NO DISTRESS NOTED.
--- NOTE | 2020-10-31 04:58 | NUR ---
QUIET HOURS. NO ACUTE CHANGES IN CONDITION THIS SHIFT. RESPRIATIONS UNLABORED. LLUVIA PATENT. NO DISTRESS NOTED.
[2020-10-31 06:43] LABS: ANION GAP 9.9 mmol/L (8-16); CALCIUM 9.3 mg/dL (8.5-10.1); CARBON DIOXIDE 30.1 mmol/L (21.0-32.0); CREATININE - SERUM 1.3 mg/dL (0.6-1.3)
[2020-10-31 07:27] VITALS: BP 156/86
[2020-10-31 08:08] LABS: BASOPHILS 0.4 % (0-2); EOSINOPHILS 2.1 % (0-7); HEMATOCRIT 38.8 % (42.0-54.0); HEMOGLOBIN 11.5 g/dL (13.5-17.5); IMMATURE GRANULOCYTES 1.3 % (0-5); LYMPHOCYTES 25.5 % (15-50); MCH 25.4 pg (26.0-34.0); MCHC 29.6 g/dL (31.0-37.0); MCV 85.8 fL (80.0-100.0); MONOCYTES 13.8 % (2-11); NEUTROPHIL ABS# 2.67 10x3/uL (1.78-5.38); NEUTROPHILS 56.9 % (40-80); RBC 4.52 10x6/uL (4.20-6.10); RDW 19.9 % (11.5-14.5)
[2020-10-31 08:17] LABS: PLATELET COUNT 192 10x3/uL (130-400); WBC 4.7 10x3/uL (4.8-10.8)
--- NOTE | 2020-10-31 13:07 | NUR ---
LAYING IN BED IN ROOM. EYES CLOSED. NO S/S DISTRESS. CALL LIGHT IN REACH
--- NOTE | 2020-10-31 16:28 | NUR ---
CLINICAL UPDATES FAXED TO [facility] , AUTH. # [id number], WITH A TENATIVE DC DATE OF 11/07/11. FAX CONFORMATION RECEIVED. WILL CONTINUE TO FOLLOW WITH PATIENT.
--- NOTE | 2020-10-31 18:50 | NUR ---
RECEIVED PT SITTING UP ON SIDE OF BED VISITING BROTHER. ALERT AND ORIENTED X3. DENIES ANY NEEDS OR PAIN. BED WAIVER ON FILE. NO DISTRESS NOTED. CALL LIGHT AND WATER WITHIN REACH. FALL PRECAUTIONS IN PLACE. CPOC
[2020-10-31 20:29] VITALS: BP 124/67
--- NOTE | 2020-11-01 01:31 | NUR ---
PT LYING IN BED ON RIGHT SIDE EYES CLOSED RESTING. RR EVEN AND UNLABORED. CALL LIGHT WITHIN REACH. CPOC
--- NOTE | 2020-11-01 05:14 | NUR ---
PT LYING IN BED ON LEFT SIDE EYES CLOSED RESTING. NO DISTRESS NOTED. CALL LIGHT WITHIN REACH. CPOC
--- NOTE | 2020-11-01 12:50 | NUR ---
LAYING SIDEWAYS ON BED AFTER LUNCH. SLOW TO RESPOND BUT DENIES NEEDS OR C/O. CALL LIGHT IN REACH
--- NOTE | 2020-11-01 15:17 | NUR ---
CARE TEAM MEETING: PATIENT IS DOING WELL IN THERAPY. HIS TENATIVE DC DATE IS 11/06/20. WILL CONTINUE TO FOLLOW WITH PATIENT AND WILL ASSIST WITH DC NEEDS.
--- NOTE | 2020-11-01 18:52 | NUR ---
RECEIVED PT LYING IN BED AWAKE. ALERT AND ORIENTED X3. DENIES ANY NEEDS OR PAIN. BED/CHAIR ALARM WAIVER SIGNED AND IN CHART. NO DISTRESS NOTED. CALL LIGHT AND WATER WITHIN REACH. CPOC
[2020-11-01 20:28] VITALS: BP 130/66
--- NOTE | 2020-11-02 02:21 | NUR ---
PT LYING IN BED ON LEFT SIDE EYES CLOSED RESTING. RR EVEN AND UNLABORED. CALL LIGHT WITHIN REACH. CPOC
[2020-11-02 08:00] VITALS: BP 123/72
[2020-11-02 08:33] LABS: ANION GAP 12.1 mmol/L (8-16); CALCIUM 9.6 mg/dL (8.5-10.1); CARBON DIOXIDE 27.1 mmol/L (21.0-32.0); CREATININE - SERUM 1.3 mg/dL (0.6-1.3); POTASSIUM - SERUM 4.2 mmol/L (3.5-5.1)
[2020-11-02 08:55] LABS: BASOPHILS 0.2 % (0-2); EOSINOPHILS 2.3 % (0-7); HEMATOCRIT 39.2 % (42.0-54.0); HEMOGLOBIN 12.1 g/dL (13.5-17.5); LYMPHOCYTE ABS# 1.31 10x3/uL (1.32-3.57); LYMPHOCYTES 27.3 % (15-50); MCH 26.1 pg (26.0-34.0); MCHC 30.9 g/dL (31.0-37.0); MCV 84.5 fL (80.0-100.0); MEAN PLATELET VOLUME 10.4 fL (7.4-10.4); MONOCYTES 11.9 % (2-11); NEUTROPHIL ABS# 2.75 10x3/uL (1.78-5.38); NEUTROPHILS 57.3 % (40-80); PLATELET COUNT 221 10x3/uL (130-400); RBC 4.64 10x6/uL (4.20-6.10); RDW 19.2 % (11.5-14.5); WBC 4.8 10x3/uL (4.8-10.8)
--- NOTE | 2020-11-02 15:59 | NUR ---
RESTING QUIETLY IN BED. EYES CLOSED. NO S/S DISTRESS. CALL LIGHT IN REACH
--- NOTE | 2020-11-02 16:02 | NUR ---
SPOKE WITH CM FROM [facility] AND PATIENT HAS BEEN APPROVED TILL 11/06/20. WILL CONTINUE TO FOLLOW WITH PATIENT.
--- NOTE | 2020-11-02 19:15 | NUR ---
AWAKE AND ALERT. RESTING IN BED WATCHING TV. RESPIRATIONS UNLABORED. NO DISTRESS NOTED. CALL LIGHT IN REACH.
[2020-11-02 19:36] VITALS: BP 116/68
--- NOTE | 2020-11-03 01:15 | NUR ---
SLEEPING WITH RESPIRATIONS UNLABORED. NO DISTRESS NOTED.
--- NOTE | 2020-11-03 05:15 | NUR ---
QUIET HOURS. NO ACUTE CHANGES IN CONDITION THIS SHIFT. RESTING IN BED WITH NO DISTRESS NOTED.
--- NOTE | 2020-11-03 08:00 | NUR ---
SHIFT ASSMT COMPLETED.CL IN REACH.
[2020-11-03 10:21] VITALS: BP 136/71
--- NOTE | 2020-11-03 12:00 | NUR ---
SITTING UP EATING LUNCH.
--- NOTE | 2020-11-03 16:00 | NUR ---
RESTING QUIETLY.LAILA THERAPY WITH PT.
[2020-11-03 19:00] VITALS: BP 126/55
--- NOTE | 2020-11-03 19:44 | NUR ---
AWAKE AND ALERT. RESTING IN BED WITH RESPIRATIONS UNLABORED. NO DISTRESS NOTED. STATES HE IS LOOKING FORWARD TO GOING HOME NEXT WEEK.
--- NOTE | 2020-11-04 05:06 | NUR ---
QUIET HOURS. NO ACUTE CHANGES IN CONDITION THIS SHIFT. RESPRIATIONS UNLABORED. CALL LIGHT IN REACH.
[2020-11-04 08:00] VITALS: BP 108/67
--- NOTE | 2020-11-04 08:00 | NUR ---
SHIFT ASSMT COMPLETED.CL IN REACH.SITTING ON SIDE OF BED,EATING BREAKFAST.DENIES NEEDS.
--- NOTE | 2020-11-04 12:00 | NUR ---
SITTING U8P EATING LUNCH.
[2020-11-04 15:31] VITALS: BP 108/67
[2020-11-04 19:00] VITALS: BP 132/68
--- NOTE | 2020-11-04 19:32 | NUR ---
AWAKE AND ALERT. RESTING IN BED WATCHING TV. RESPIRATIONS UNLABORED. NO DISTRESS NOTED.
--- NOTE | 2020-11-05 00:31 | NUR ---
RESTING QUIETLY IN BED WITH NO DISTRESS NOTED.
--- NOTE | 2020-11-05 04:57 | NUR ---
QUIET HOURS. NO ACUTE CHANGES IN CONDITION THIS SHIFT. RESTING IN BED WITH NO DISTRESS NOTED.
[2020-11-05 07:51] VITALS: BP 146/75
--- NOTE | 2020-11-05 09:04 | RHP ---
PATIENT: SHELIA HERNANDEZ MEDICAL RECORD: [id number] ACCOUNT: [id number] LOCATION:[facility]1114 : 53 ADMISSION DATE: 10/25/20 REHABILITATION HISTORY AND PHYSICAL EXAMINATION POST ADMISSION PHYSICIAN EXAMINATION ADMITTING DIAGNOSIS: Acute exacerbation of chronic obstructive pulmonary disease. HISTORY OF PRESENT ILLNESS: The patient is a 65-year-old gentleman who has got acute exacerbation of COPD. He has got generalized weakness. The patient apparently presented after becoming quite short of breath. He denied any pain. He was a pretty poor historian upon admission to the hospital. He had a history of CVA, diabetes, hypertension. The patient denied any history of any type of chronic kidney disease. He was alert and awake upon initial evaluation, but had some mild confusion. He had a small pleural effusion. He does smoke on a regular basis and admits to alcohol use. He denied any illicit or street drugs. He was admitted with severe anemia, suspected GI bleed and acute renal failure. GI consult, nephrology hem/onc and pulmonary saw him during his stay. He was placed on appropriate medications and transfused with 3 units of packed red blood cells. He has remained stable after receiving this. He has been placed on antibiotics including Flagyl. Pulmonary saw him throughout his stay, felt like he might even have a community-acquired pneumonia or aspiration pneumonia. He was placed on vancomycin and Maxipime during his stay. The patient was noted to have tobacco dependence withdrawal during his stay. He has got morbid obesity with a BMI greater than 34, hyponatremia. Previously, he lived alone or with roommates. He has been independent with ADLs and mobility. Apparently, his friends were of little help to him when he initially got sick. He has had prolonged immobility. He has got decreased tolerance to physical therapy at this time. He is mod to max assist for bed mobility, mod to max assist for sit to stand and bed to chair. He has got left-sided weakness from a previous CVA. He definitely needs inpatient rehab to hopefully get back to a level of functioning that he can return home. COMORBIDITIES: Include anemia, alcohol dependence, tobacco dependence, community-acquired pneumonia. PAST MEDICAL HISTORY: Significant for CVA in the past, diabetes, respiratory problems. PAST SURGICAL HISTORY: None. ALLERGIES: No current drug allergies. CURRENT MEDICATIONS: Include Pravachol 40 mg daily, potassium 10 mEq daily, Lasix 20 mg b.i.d., metoprolol 25 mg b.i.d., Glucophage-XR 150 mg b.i.d., Wellbutrin 150 mg b.i.d. and MiraLax 17 grams in 8 ounces of water daily. HABITS: Does have a history of alcohol and tobacco use, but denies any illicit drugs. FAMILY HISTORY: Noncontributory. SOCIAL HISTORY: The patient hopes to return back home, hopefully get back to his prior level of functioning. HISTORY AND PHYSICAL [id number] SHELIA HERNANDEZ REVIEW OF SYSTEMS: GENERAL: Does complain of weakness and fatigue. HEENT: Denies cold, cough or congestion. CARDIOVASCULAR: Denies any chest pain. PHYSICAL EXAMINATION: VITAL SIGNS: Stable, afebrile. GENERAL: A morbidly obese gentleman in no acute distress upon exam. HEENT: Normocephalic and atraumatic. Mucosa moist. NECK: Supple. No lymphadenopathy. LUNGS: Clear in upper villareal, but decreased breath sounds in the bases secondary to body habitus. CARDIOVASCULAR: Regular rate and rhythm. No murmurs, rubs or gallops. ABDOMEN: Soft, benign. Noted to be obese. EXTREMITIES: No clubbing, cyanosis or edema. NEUROLOGIC: He answers most questions appropriately. He does have diffuse weakness. LABORATORY DATA: White count is 6.1, H&H of 11.4 and 39.1 and platelet count is 279. His sodium is 140, potassium 3.8, BUN and creatinine of 22 and 1.3, blood sugar is noted to be 143. 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 The patient has potential to make improvement. We instituted the following multidisciplinary therapies including, not limited to physical, occupational, respiratory, speech, nutritional services, prosthetics and orthotics. Given his complex medical condition and risks for more complications, rehabilitation services cannot be provided at a low level of care such as assisted facility. PLAN: 1. Admit to [facility] for inpatient therapy to include the following disciplines; A. Physical therapy to improve gait, all transfer skills and bed mobility to a modified independent level. B. Occupational therapy to improve activities of daily living. C. Case management to help with discharge planning and placement options. D. Nutrition to assist with nutritional needs. E. Rehabilitation nursing to assist in monitoring the patient's underlying medical conditions and to assist with any type of bowel or bladder management. 2. The patient's current medication and medical care will be continued. 3. The patient will be placed on standard fall precautions. 4. We will continue on home medications where appropriate. 5. We will watch for any signs of DT or withdrawal and I am going to see again in the a.m. TRANSINT:[id number] Voice Confirmation ID: [id number] DOCUMENT ID: [id number] GAY notes whether there has been none or any medical/functional change since admission: - No change since preadmission screen. HISTORY AND PHYSICAL [id number] SHELIA HERNANDEZ attests patient continues to be appropriate for IRF: - Continues to be appropriate. ISABEL ORTIZ MD at 0904 CC: [id number] DICTATION DATE: 10/26/20 0843 HOME SPECIALIST: 10/26/[address] [facility] [address] [place] [address]
[2020-11-05 09:05] LABS: ANION GAP 12.8 mmol/L (8-16); CALCIUM 9.4 mg/dL (8.5-10.1); CARBON DIOXIDE 25.9 mmol/L (21.0-32.0); CREATININE - SERUM 1.2 mg/dL (0.6-1.3); POTASSIUM - SERUM 3.7 mmol/L (3.5-5.1)
[2020-11-05 09:29] LABS: BASOPHILS 0.2 % (0-2); EOSINOPHILS 2.2 % (0-7); HEMATOCRIT 38.9 % (42.0-54.0); HEMOGLOBIN 11.9 g/dL (13.5-17.5); IMMATURE GRANULOCYTES 0.9 % (0-5); LYMPHOCYTE ABS# 1.29 10x3/uL (1.32-3.57); MCH 26.1 pg (26.0-34.0); MCHC 30.6 g/dL (31.0-37.0); MCV 85.3 fL (80.0-100.0); MEAN PLATELET VOLUME 10.9 fL (7.4-10.4); MONOCYTES 7.2 % (2-11); NEUTROPHIL ABS# 2.84 10x3/uL (1.78-5.38); NEUTROPHILS 61.5 % (40-80); PLATELET COUNT 179 10x3/uL (130-400); RBC 4.56 10x6/uL (4.20-6.10); RDW 18.8 % (11.5-14.5); WBC 4.6 10x3/uL (4.8-10.8)
--- NOTE | 2020-11-05 18:47 | NUR ---
RECEIVED PT SITTING UP ON SIDE OF BED. ALERT AND ORIENTED X3. VERY [place]. DENIES ANY NEEDS OR PAIN. NO DISTRESS NOTED. CALL LIGHT AND WATER WITHIN REACH. FALL PRECAUTIONS IN PLACE. CPOC
[2020-11-05 20:31] VITALS: BP 133/69
--- NOTE | 2020-11-05 23:24 | NUR ---
PT LYING IN BED ON LEFT SIDE EYES CLOSED RESTING. RR EVEN AND UNLABORED. CALL LIGHT WITHIN REACH. CPOC
--- NOTE | 2020-11-06 03:37 | NUR ---
PT LYING IN BED SUPINE EYES CLOSED RESTING. NO DISTRESS NOTED. CALL LIGHT WITHIN REACH. CPOC
--- NOTE | 2020-11-06 05:11 | NUR ---
NO LAB DRAWS TODAY FOR EP
[2020-11-06 08:06] VITALS: BP 116/71
--- NOTE | 2020-11-06 09:58 | NUR ---
SITTING ON SIDE OF BED IN ROOM. IS [place] AND ORIENTED X4. SLOW TO ANSWER TO OR FOLLOW COMMANDS. DENIES NEEDS OR C/O. CALL LIGHT IN REACH
--- NOTE | 2020-11-06 10:42 | NUR ---
PATIENT DISCHARGING HOME TODAY. PATIENT HAS DECINED HOME HEALTH ND HIS INSURANCE HAS NO DME CLAUSE. GARCIA SIGNED, IMM SERVED AND EXPLIANED, ONE GIVEN TO PATIENT AND ONE FILED IN CHART. DR. MANZANARES 11/14/20 @ 10:30, DR. NDAIYE 11/22/20 @ 10:40. DISCHARGE INSTRUCTIONS FAXED TO PCP, [facility] , AUTH. # [id number] AND REVIEWED WITH PATIENT.
--- NOTE | 2020-11-06 12:30 | NUR ---
DC HOME WITH HIS BROTHER. REVIEWED MEDS AND DC PLAN. CALLED MEDS INTO PHARMACY. LEFT FLOOR IN .
== END 2020-11-06 13:16 | disposition home or self-care (01) | DRG 190 ==
LOC: D.REHAB 17:43
PROVIDERS: ADMIT Emergency Medicine; ATTEND Emergency Medicine
DX: J44.1 Chronic obstructive pulmonary disease with (acute) exacerbation (principal); J18.9 Pneumonia, unspecified organism; J96.02 Acute respiratory failure with hypercapnia; J96.01 Acute respiratory failure with hypoxia; E87.1 Hypo-osmolality and hyponatremia; N17.9 Acute kidney failure, unspecified; E87.2 Acidosis; F17.203 Nicotine dependence unspecified, with withdrawal; D64.9 Anemia, unspecified; F10.20 Alcohol dependence, uncomplicated; E66.9 Obesity, unspecified; Z68.37 Body mass index [BMI] 37.0-37.9, adult; E11.65 Type 2 diabetes mellitus with hyperglycemia; E83.41 Hypermagnesemia; I10 Essential (primary) hypertension; R13.12 Dysphagia, oropharyngeal phase